=== PATIENT | male | born 1965 | race Caucasian/White ===

== ENCOUNTER 2017-04-14 10:15 | Inpatient (IN) | payer SELFPAY ==
[2017-04-14 10:28] LABS: #Basophils 0.1 thou/uL (0.0-0.2); #Eosinphils 0.2 thou/uL (0.0-0.7); #Lymphocytes 2.2 thou/uL (1.20-3.40); #Monocytes 0.7 thou/uL (0.11-0.59); #Neutrophils 5.9 thou/uL (1.40-6.50); %Basophils 0.7 % (0.0-1.0); %Eosinophils 2.7 % (0.0-10.0); %Lymphocytes 24.7 % (21.0-51.0); %Monocytes 7.3 % (0.0-10.0); Hematocrit 47.5 % (42.0-52.0); Mean Platelet Volume 8.4 fL (7.4-10.4); Red Blood Cell (RBC) Count 5.35 mill/uL (4.70-6.10); White Blood Cell (WBC) Count 9.1 thou/uL (4.8-10.8)
[2017-04-14] MEDS ORDERED: niCARdipine 20MG In NaCl 20 MG/200 ML BAG ONE (10:33)
[2017-04-14] MEDS ORDERED: Propofol 1,000 MG/100 ML VIAL IV ONE (10:33)
[2017-04-14 10:35] LABS: PTT 30.7 SEC (22.9-36.1)
[2017-04-14 10:39] LABS: Prothrombin Time 12.6 SEC (12.0-14.7)
[2017-04-14 10:43] LABS: ALT (SGPT) 17 U/L (8-55); AST (SGOT) 14 U/L (5-34); Alkaline Phosphatase 142 U/L (40-150); Anion Gap 16 mmol/L (10-20); BUN (Urea Nitrogen) 7 mg/dL (8.9-20.6); Bilirubin, Total 0.7 mg/dL (0.2-1.2); Calc. Creatinine Clearance 0 mL/min (70-130); Carbon Dioxide 21 mmol/L (22-29); Chloride 105 mmol/L (98-107); Estimated GFR-MDRD Greater than 90; Globulin 3.3 g/dL (2.4-3.5); Protein, Total 7.2 g/dL (6.0-8.3)
[2017-04-14 10:46] LABS: Troponin I 0.013 ng/mL (< 0.028)
--- NOTE | 2017-04-14 10:56 | CT ---
CT OF HEAD WITHOUT CONTRAST: CLINICAL HISTORY: AMS, stroke alert. COMPARISON: Reference is made to head CT of 03/12/16. FINDINGS: There is a large nidus of acute parenchymal hemorrhage centered within the left thalamus and mahesh ing to the left dasilva radiata with surrounding vasogenic edema. This results in mass effect and ef facement of the 3rd ventricle with mild rightward midline shift and dissection of blood into the taz tricular system, with associated ventriculomegaly. The degree of midline shift at level of third ve ntricle measures approximately 6 mm. Hemorrhage descends through the cerebral aqueduct into the 4th ventricle. There is linear increased density along the expected confines of the left MCA which cou ld relate to tracking subarachnoid hemorrhage or, alternatively, thrombus within the left MCA not fu rther discerned. There is a mild degree of hemorrhage traversing the foramina of Luschka, bilateral ly. IMPRESSION: 1. Acute hemorrhage, likely hypertensive in etiology, centered at left thalamus dissecting into the ventricular system with associated vasogenic edema, mass effect, and midline shift. 2. Moderate volume of interventricular hemorrhage does result in developing obstructive hydrocephal us. 3. Telephone call placed to ordering ER physician, Dr. Sajan Angelo, at 1042 hours, 04/14/17. CODE CR POS: LEATHA
--- NOTE | 2017-04-14 10:57 | RAD ---
FRONTAL VIEW CHEST: COMPARISON: 08/28/13. INDICATION: Dyspnea. FINDINGS: There is marked enlargement of the cervical spine. Partially imaged endotracheal tube is present wi th tip projecting at the upper aspect of the thoracic inlet. There is a nasogastric tube not well d iscerned to the course of the mediastinum, although is coiled at the left upper quadrant. There is bilateral alveolar and interstitial opacity. Left lateral lung base is excluded from view. IMPRESSION: Findings most consistent with decompensated congestive heart failure. Superimposed pneumonia not ex cluded. Recommend continued followup. POS: LEATHA
[2017-04-14 11:04] LABS: Oxyhemoglobin 92.6 % (94.0-97.0); Sodium 141 mmol/L (135-148)
[2017-04-14 11:05] LABS: Mechanical Tidal Volume 600 ml; Mode SIMV/PSV; PIP 26 cmH2O; Pressure Support 10 cmH2O; Vent YES
[2017-04-14] MEDS ORDERED: Ondansetron HCl/PF 4 MG/2 ML Vial IVP PRN (11:34)
[2017-04-14] MEDS ORDERED: Sedation Protocol FS ONE (11:34)
[2017-04-14] MEDS ORDERED: niCARdipine 20MG in NaCl 200 ML BAG IVPB PRN (11:34)
[2017-04-14] MEDS ORDERED: Fentanyl 100 MCG/2 ML VIAL ONE ×3 (11:35→19:03)
[2017-04-14] MEDS ORDERED: Nitroglycerin 50 MG/250 ML BOT 250 ML ONE (11:43)
[2017-04-14] MEDS ORDERED: Propofol 500 MG/50 ML VIAL IV PRN (11:44)
[2017-04-14] MEDS ORDERED: Fentanyl 20 MCG/ML 250 ML IVPB SCH ×2 (11:45→13:29)
[2017-04-14] MEDS ORDERED: Morphine Sulfate 2 MG/ML SYRINGE SLOW IVP PRN ×2 (11:47→13:29)
[2017-04-14] MEDS ORDERED: Lorazepam 2 MG/ML VIAL SLOW IVP PRN (13:29)
[2017-04-14] MEDS ORDERED: DISCONTINUE PREVIOUS NARCOTIC PAIN MEDICATIONS AND BENZODIAZEPINES FS SCH (13:29)
[2017-04-14] MEDS ORDERED: niCARdipine HCl 25 MG in Sodium Chloride 0.9% 250 ML 240 ML IVPB PRN (13:36)
[2017-04-14] MEDS: Labetalol HCl 100 MG/20 ML VIAL SLOW IVP PRN ×8 (14:04→21:31)
[2017-04-14] MEDS: Sodium Chloride 0.9% 1,000 ML IV SCH ×2 (14:05→23:59)
[2017-04-14] MEDS: Propofol 1,000 MG/100 ML VIAL IV PRN ×2 (14:06→18:41)
[2017-04-14] MEDS ORDERED: Dextrose 5% in Water 1,000 ML IV PRN (14:59)
[2017-04-14] MEDS ORDERED: Dextrose 50% Abboject 50 ML SYRINGE SLOW IVP PRN (14:59)
[2017-04-14] MEDS ORDERED: Lacri-Lube Opth Oint 3.5 GM TUBE EA EYE PRN (15:01)
[2017-04-14 15:16] LABS: Oxyhemoglobin 91.6 % (94.0-97.0); Sodium 140 mmol/L (135-148)
[2017-04-14 15:29] LABS: Mechanical Tidal Volume 510 ml; Mode SIMV; Modified Allen's Test POSITIVE; Pressure Support 11 cmH2O; Vent YES
[2017-04-14] MEDS ORDERED: Acetaminophen 650 MG/20.3 ML UDCUP PO PRN (17:02)
[2017-04-14] MEDS: Piperacillin/Tazobactam 3.375 GM in Sodium Chloride 0.9% 100 ML IVPB SCH ×2 (18:30→23:58)
--- NOTE | 2017-04-14 18:30 | CT ---
HEAD CT WITHOUT CONTRAST: Date: 04-14-17 Time: 5:19 p.m. Comparison: 04-14-17 at 10:40 a.m. History: Re-evaluate intracranial hemorrhage. Technique: Serial axial CT imaging at 5 mm intervals from vertex through skull base without contrast . FINDINGS: There is an intraaxial hemorrhage centered within the basal ganglia/thalamus on the left measuring a pproximately 4.1 x 2.8 cm, similar in size when compared to the prior exam. There is intraventricula r hemorrhage involving bilateral lateral ventricles, left greater than right. The third ventricle an d fourth ventricle, similar when compared to the prior exam. The bilateral lateral ventricles are dilated, the temporal horns measuring approximately 1.6 and 1.7 cm on the right and left respectively, increased from the prior exam at which time they measured 8 mm and 8 mm respectively. This suggests worsening obstructive hydrocephalus. The degree of surroundi ng vasogenic edema in the region of the intraaxial hemorrhage is stable. The third ventricle is leonard ated to the right of midline by approximately 7 mm at the level of the hemorrhage, not significantly changed. Loss of sulcation is seen in the frontal and parietal regions, left greater than right, sl ightly increased since the prior examination suggesting worsening mass effect as well. No acute osseous abnormality. Significant right sided paranasal sinus opacification again noted. IMPRESSION: 1. No significant interval change in the intraaxial hemorrhage on the left with associated intravent ricular extension. The dilation of the lateral ventricles and the supratentorial mass effect has wor sened since the prior exam. POS: IBIS
[2017-04-14] MEDS ORDERED: Lidocaine 1% w/Epinephrine 1:200K 30 ML VIAL ONE (18:40)
[2017-04-14] MEDS: Acetaminophen 650 MG/20.3 ML UDCUP PER TUBE PRN (18:41)
--- NOTE | 2017-04-14 19:05 | HP ---
NEUROSURGERY SERVICE HISTORY OF PRESENT ILLNESS: The patient is a 51-year-old male with a past medical history of hypertension and prior CVA, who presented to the emergency department per EMS after family repor ts headache which began at 8:30 following by episode where the patient became unconscious and shortl y after that the patient was brought to the emergency department where CT head was done which reveal ed a large left thalamic intracranial hemorrhage with intraventricular extension. The patient's blo od pressure was also noted to be 209/144 on arrival. The patient's initial exam per Dr. Angelo was notable for, the patient was unconscious, agonal breathing, decorticate posturing on the right with left-sided blown pupil in right lateral gaze. He was therefore intubated and sedation and stated f or protection of the airway and further management. A Cardene drip was also initiated for blood pre ssure control and the Neurosurgery Service was consulted for further evaluation. I saw the patient at the bedside in the ER, room #12. The family is also at the bedside. [facility] as well as the family, exam was limited secondary to the patient's sedation and intu bation. PAST MEDICAL HISTORY: Hypertension and CVA. SOCIAL HISTORY: The patient lives at home. He is noncompliant on his medication. He does not repo rtedly drink or use any drugs. ALLERGIES: The patient has no known drug allergies. FAMILY HISTORY: Noncontributory. REVIEW OF SYSTEMS: Unobtainable secondary to the patient's critical condition as well as intubated and sedated. PHYSICAL EXAMINATION: VITAL SIGNS: Heart rate 108, BP 179/110, 92% on the ventilator settings, and respiration rate of 22 . GENERAL: The patient is unresponsive. HEENT: Normocephalic and atraumatic. Pupils are unequal, left pupil is dilated, right pupil is fix ed, right lateral gaze was appreciated. Conjunctivae are normal. Sclerae are normal. ENT: The pa tient is currently intubated. He appears to have moist oral mucosa. NECK: Supple. Trachea is midline. RESPIRATORY: Symmetric chest expansion, bilateral breath sounds are present, currently being ventil ated. CARDIOVASCULAR: Tachycardic. No murmurs, rubs or gallops. ABDOMEN: Protuberant and soft. MUSCULOSKELETAL: Good muscle tone to his bilateral upper and lower extremities. He has withdrawal the pain over the left lower extremity, chronic venous stasis noticed bilateral lower extremities. NEUROLOGIC: GCS of 5. The patient is unresponsive. Remainder of neuro exam is limited at this hipolito e secondary to patient's sedation and intubation. ASSESSMENT: Acute intracranial hemorrhage with intraventricular extension. PLAN: I have discussed the patient's presentation, exam findings as well as imaging with Dr. Abdiel stover. He is also reviewed this as well. We will plan to admit the patient to the ICU for close monit oring and q.1 neuro checks, head of the bed will be elevated to 30 degrees. We will get better bloo d pressure control with Cardene drip as well as labetalol on p.r.n. basis. Patient will remain afte r sedation and intubated. I have consulted the Hospitalist for assistance with medical management a s well as Pulmonary. We will plan to repeat head CT at 5:00 p.m. for repeat evaluation of the patie nt's intracranial hemorrhage. The patient may require EVD placement. Please reach out to Neurosurg juma Service for additional questions or concerns.
[2017-04-14] MEDS ORDERED: Fentanyl 100 MCG/2 ML VIAL SLOW IVP SCH (19:15)
[2017-04-14] MEDS ORDERED: Acetaminophen 650 MG Suppository PR PRN (19:42)
[2017-04-14] MEDS: Famotidine/PF 20 mg/2ml Vial SLOW IVP SCH (20:37)
[2017-04-14] MEDS: niCARdipine HCl 50 MG in Sodium Chloride 0.9% 250 ML 230 ML IVPB PRN (20:58)
--- NOTE | 2017-04-14 20:59 | CON ---
DATE OF SERVICE: 04/14/2017 SERVICE: Pulmonary Medicine. REASON FOR CONSULTATION: ICU patient. HISTORY OF PRESENT ILLNESS: The patient is a 51-year-old white male with past medical history significant for diabetes and hypertension. He is supposed to be on blood pressure medications. He does not take any of these medications. He presented to the hospital with severely elevated blood pressures after abrupt changes in mentation. CT of the brain demonstrated a thalamic bleed. The location of the bleed was resulting in some abnormal postural changes. He currently cannot provide any additional elements of the history. Prior to this event, he was in his usual state of health. PAST MEDICAL HISTORY: 1. Hypertension. 2. Type 2 diabetes mellitus. 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 SOCIAL HISTORY: He drinks socially. He does not have any alcohol or illicit drug use. FAMILY HISTORY: Noncontributory. ALLERGIES: No known drug allergies. MEDICATIONS: Inpatient medications were reviewed. Multiple updates were made. REVIEW OF SYSTEMS: This could not be obtained as the patient is currently intubated and obtunded. PHYSICAL EXAMINATION: VITAL SIGNS: Afebrile, pulse 94, blood pressure 151/92, respirations 22, saturation 94% on of 47% FiO2. GENERAL: The patient is intubated. He is not responding appropriately to his environment. HEENT: Normocephalic, atraumatic. Sclerae are white, conjunctivae pink. Oral and nasal mucosa is moist without lesions. LUNGS: Decent air entry with no prolonged expiratory phase, wheezing, rhonchi or crackles. HEART: Normal rate. Regular. ABDOMEN: Soft, nontender, nondistended, bowel sounds positive. MUSCULOSKELETAL: No cyanosis or clubbing. No pitting in the bilateral lower extremities. NEUROLOGIC: With noxious stimuli, he demonstrates decerebrate posturing with the right upper extremity. His left pupil and right pupil are fixed. The left is slightly more dilated. He over breathes the ventilator. LABORATORY DATA: CBC is grossly unremarkable. INR 0.9. PH 7.34, pCO2 51, pO2 71 on SIMV with a rate of 16, and a tidal volume of 600 at that time. BUN 7. Basic metabolic profile is otherwise unremarkable. Liver function studies are normal. Cardiac enzymes and BNP are normal. IMAGING: CT of brain demonstrates acute hemorrhage at the left thalamus dissecting into the ventricular system with associated vasogenic edema and mass effect and midline shift. Moderate volume of intraventricular hemorrhage, does not result in obstructive hydrocephalus at this time. Of note, there is no evidence of herniation. Chest x-ray demonstrates endotracheal tube, roughly 6 cm above the angélica. There are low lung volumes. There is a wide mediastinum, and pleural parenchymal opacifications are identified that could represent volume overload. ASSESSMENT: 1. Intraparenchymal hemorrhage with intraventricular extension. 2. Acute hypoxic respiratory failure. 3. Type 2 diabetes mellitus, poorly controlled. 4. Hypertensive emergency. PLAN: We will provide the patient with frequent doses of labetalol in order to target a blood pressure less than 150 per Neurosurgery recommendations. We will continue support on the ventilator. Multiple adjustments have been made and the patient is now overbreathing the ventilator. I will repeat an ABG in roughly 1 hour to make certain that we are not having significant hypercapnia. Repeat CT scan of the head is going to be performed to see whether or not there is evolution of this lesion. If there is, ventriculostomy drain will be considered. I have updated the family at bedside with the plan and they understand that if he makes recovery, it is going to take several weeks for that to be apparent. I have also prepped them for the idea that he is most likely going to have permanent debility for the rest of his life, but that nobody can predict the severity/degree of that dysfunction currently. Critical care time: 30 minutes. BRIANA
--- NOTE | 2017-04-14 21:11 | CON ---
DATE OF CONSULTATION: 04/14/2017 ADMITTING PHYSICIAN: Chris Montalvo M.D. CHIEF COMPLAINT: Altered mental status. HISTORY OF PRESENT ILLNESS: The patient is a 51-year-old gentleman with a history of hypertension. The patient fell unconscious today while at synagogue. Family reports that the patient was complainin g of headache and feeling weak before falling unconscious. The patient was brought to the ED and wa s still unresponsive. A CAT scan does show an intracerebral hemorrhage. It appears hypertensive in etiology centered at the left thalamus, dissecting into the ventricular system with vasogenic edema . PAST MEDICAL HISTORY: Hypertension, diabetes, and CVA in 2016. PSYCHIATRIC HISTORY: Depression. HOME MEDICATIONS: Reported that the patient was noncompliant, but includes: 1. Atorvastatin 40 mg every day. 2. Metformin 1000 mg b.i.d. 3. Aspirin 81 mg every day. 4. Viagra 50 mg p.r.n. 5. Metoprolol 25 mg every day. 6. Amlodipine 10 mg every day. 7. Lisinopril 40 mg every day. 8. Glyburide 2.5 mg every day. 9. Zoloft 100 mg every day. SOCIAL HISTORY: The patient does drink socially. They denied that he took drugs or smoke. FAMILY HISTORY: Noncontributory at this time. REVIEW OF SYSTEMS: The following complete review of systems was negative, unless otherwise mentione d in the HPI or below: Constitutional: Weight loss or gain, sense of well-being, ability to conduc t usual activities, exercise tolerance. Skin/Breast: Rash, itching, changes in hair growth or loss , nail changes, breast lumps, tenderness, swelling, nipple discharge. Eyes: Vision, double vision, tearing, blind spots, pain. ENT/Mouth: Headaches (location, time of onset, duration, precipitatin g factors), vertigo, lightheadedness, injury. Vision, double vision, tearing, blind spots, pain, nos e bleeding, colds, obstruction, discharge, dental difficulties, gingival bleeding, dentures, neck st iffness, pain, tenderness, masses in thyroid or other areas. Cardiovascular: Precordial pain, subs ternal distress, palpitations, syncope, dyspnea on exertion, orthopnea, nocturnal paroxysmal dyspnea , edema, cyanosis, hypertension, heart murmurs, varicosities, phlebitis, claudication. Respiratory: Pain, shortness of breath, wheezing, stridor, cough, hemoptysis, fever or night sweats. Gastroint estinal: Poor appetite, dysphagia, indigestion, abdominal pain, heartburn, eructation, nausea, vomi ting, hematemesis, jaundice, constipation, or diarrhea, abnormal stools (gurpreet-colored, tarry, bloody , greasy, foul smelling), flatulence, hemorrhoids, recent changes in bowel habits. Genitourinary: Urgency, frequency, dysuria, nocturia, hematuria, polyuria, oliguria, unusual (or change in) color o f urine, stones, hesitancy, change in size of stream, dribbling, acute retention or incontinence, li filippo, potency. Musculoskeletal: Pain, swelling, redness or heat of muscles or joints, limitation, of motion, muscular weakness, atrophy, cramps. Neurologic/Psychiatric: Convulsions, paralyses, wale mor, incoordination, parasthesias, difficulties with memory of speech, sensory or motor disturbances , or muscular coordination (ataxia, tremor), emotional problems, anxiety, depression, previous psych iatric care, unusual perceptions, hallucinations. Allergy/Immunologic: Skin rash, anemia, bleeding tendency, polydipsia, polyuria, intolerance to heat or cold. PHYSICAL EXAMINATION: VITAL SIGNS: Blood pressure 148/88, pulse 86, satting 94% and the patient has temperature of 98.8. GENERAL: The patient is sedated and intubated. HEENT: Head: Normocephalic, atraumatic. Eyes: Pupils are equally round and reactive to light. T he right pupil does appear dilated with right lateral gaze. ENT: Nose exam normal. No bleeding fr om nares. Uvula exam normal. NECK: Trachea midline. ET tube in place. RESPIRATORY: Breath sounds clear. No wheezing, no rhonchi. CARDIOVASCULAR: Regular rate and rhythm. ABDOMEN: Obese, positive bowel sounds. EXTREMITIES: The patient is posturing, right arm decorticated, right leg is stiff and hyperactive, legs with some chronic venous stasis changes. NEUROLOGIC: Unresponsive. [place] coma scale of 5. LABORATORY DATA AND IMAGING: Head CT shows a midline shift with the intracerebral hemorrhage. Ches t x-ray shows findings consistent with decompensated heart failure. CBC shows a white count of 9.1, hemoglobin 16.4, hematocrit 47.5, platelets 241, PT 12.6, INR 0.9. Arterial blood gas shows a pH o f 7.34, pCO2 of 51.2, and pO2 of 71.6. Chemistries show sodium of 138, potassium 3.9, chloride 105, CO2 of 21, BUN 7, creatinine 0.78, glucose 269, AST 14, ALT 17, CK-MB 2.0, troponin I 0.013, BNP of 38.8, and albumin 3.9. ASSESSMENT AND PLAN: 1. Intracerebral hemorrhage. 2. Hypertensive emergency. 3. Diabetes type 2. PLAN: The patient is intubated and present in the ICU. He is being managed by the Neurosurgery Ser vice. There is a second CT scan pending and we will defer obviously to Neurosurgery for any surgica l intervention. The patient is on multiple medications to control his blood pressure, it is within control at this time. We will continue the current regimen and titrate medications accordingly.
--- NOTE | 2017-04-15 00:13 | OP ---
DATE OF PROCEDURE: 04/14/2017 PROCEDURE: Right twist drill placement of ventriculostomy. PROCEDURE IN DETAIL: A standard stab incision was placed in the right mid pupillary line and using the twist drill, the cranium was perforated. The dura was then punctured using a spinal needle and with a single pass and approximately 6 cm of the ventricular catheter with brisk CSF return was iden tified. The catheter was tunneled through a separate stab incision and secured with sutures.
[2017-04-15] MEDS: HumaLOG 300 UNITS/3 ML VIAL SC PRN ×4 (00:33→18:15)
[2017-04-15] MEDS: Propofol 1,000 MG/100 ML VIAL IV PRN ×2 (00:42→19:35)
[2017-04-15] MEDS: niCARdipine HCl 50 MG in Sodium Chloride 0.9% 250 ML 230 ML IVPB PRN ×4 (02:27→21:11)
[2017-04-15 05:01] LABS: #Lymphocytes 1.5 thou/uL (1.20-3.40); #Monocytes 1.2 thou/uL (0.11-0.59); #Neutrophils 9.6 thou/uL (1.40-6.50); %Basophils 0.2 % (0.0-1.0); %Eosinophils 0.3 % (0.0-10.0); %Lymphocytes 12.1 % (21.0-51.0); %Monocytes 9.7 % (0.0-10.0); Hematocrit 44.4 % (42.0-52.0); Mean Platelet Volume 8.9 fL (7.4-10.4); Red Blood Cell (RBC) Count 4.95 mill/uL (4.70-6.10); White Blood Cell (WBC) Count 12.3 thou/uL (4.8-10.8)
[2017-04-15 05:06] LABS: Oxyhemoglobin 91.5 % (94.0-97.0); Sodium 141 mmol/L (135-148)
[2017-04-15 05:08] LABS: Mechanical Tidal Volume 510 ml; Modified Allen's Test POSITIVE; Vent YES
[2017-04-15 05:09] LABS: Mode SIMV; Pressure Support 11 cmH2O
[2017-04-15] MEDS ORDERED: Sodium Chloride 0.9% 15 ML NEB ONE (05:13)
[2017-04-15 05:21] LABS: Anion Gap 16 mmol/L (10-20); BUN (Urea Nitrogen) 13 mg/dL (8.9-20.6); Calc. Creatinine Clearance 179 mL/min (70-130); Calcium 8.9 mg/dL (7.8-10.44); Carbon Dioxide 26 mmol/L (22-29); Chloride 102 mmol/L (98-107); Estimated GFR-MDRD 76
[2017-04-15] MEDS: Piperacillin/Tazobactam 3.375 GM in Sodium Chloride 0.9% 100 ML IVPB SCH ×3 (05:24→17:48)
[2017-04-15] MEDS: Famotidine/PF 20 mg/2ml Vial SLOW IVP SCH ×2 (09:00→19:39)
--- NOTE | 2017-04-15 10:33 | RAD ---
PORTABLE AP CHEST X-RAY: 04/15/2017 HISTORY: Intubated. Follow-up evaluation. COMPARISON: 04/14/2017 FINDINGS: Endotracheal tube and nasogastric tube remain in place and unchanged in position. There has been in terval development of pleural and parenchymal changes at the right lung base, which may represent sm all right pleural effusion and atelectasis, although developing pneumonia is a possibility. Interst itial and patchy opacities previously seen in the right mid lung zone and at the left lung base have resolved. The pulmonary vasculature is within normal limits. The cardiac silhouette remains enlar ged. IMPRESSION: 1. Interval development of pleural and parenchymal change at the right lung base, which may be rela brandi to interval development of right pleural effusion and atelectasis, although developing pneumonia at the right lung base is a possibility. Continued follow-up is recommended. 2. Resolution of interstitial and parenchymal opacities in the right mid lung zone and at the left lung base. 3. Cardiomegaly. 4. Tubes remain in stable position, although the tip of the nasogastric tube is not visualized. POS: CET
--- NOTE | 2017-04-15 10:52 | CT ---
PRELIMINARY REPORT/[facility]/EMERGENCY AFTER HOURS PROCEDURE: Addendum created by Aime Pierce MD on 04/15/2017 4:20 AM Central Time ([place] \T\ [place]) THIS REPORT CONTAINS FINDINGS THAT MAY BE CRITICAL TO PATIENT CARE. The findings were verbally commu nicated via telephone conference with BRIAN Palma at 4:19 AM CDT on 04/15/2017. The findings wer e acknowledged and understood. Initial Report created on 04/15/2017 4:09 AM Central Time ([place] \T\ [place]) EXAM: CT Head Without Intravenous Contrast EXAM DATE/TIME: Exam ordered 04/15/2017 3:44 AM CLINICAL HISTORY: 51 years old, male; Condition or disease; Other: F/u evd TECHNIQUE: Axial computed tomography images of the head/brain without intravenous contrast. COMPARISON: CT Brain WO Con 04/14/2017 5:14:17 PM FINDINGS: Brain: There is been interval RIGHT frontal shunt placement with tip overlying the RIGHT frontal hor n. Redemonstrated is a 3.3 cm LEFT thalamic hemorrhage with intraventricular extension, involving th e lateral third and fourth ventricles, unchanged. There is been interval increase in edema and midli ne shift with partial effacement of the suprasellar cistern concerning for herniation. Ventricles: See above. Bones/joints: Normal. No acute fracture. Soft tissues: Normal. Sinuses: Unremarkable as visualized. No acute sinusitis. Mastoid air cells: Unremarkable as visualized. No mastoid effusion. Sella: See above. IMPRESSION: 1. There is been interval RIGHT frontal shunt placement with tip overlying the RIGHT frontal horn. 2. LEFT thalamic hemorrhage with intraventricular extension and interval increase in edema and midli ne shift resulting in partial effacement of the suprasellar cistern concerning for herniation. Thank you for allowing us to participate in the care of your patient. Dictated and Authenticated by: Aime Pierce MD 04/15/2017 4:09 AM Central Time ([place] \T\ [place]) FINAL REPORT CT BRAIN: Final report. Preliminary exam was performed by [facility]. A 51-year-old with intracranial hemorrhage. I concur with the dictation from [facility]. There has been placement of a right frontal taz triculostomy tube. There has been significant reduction of the hydrocephalus. There is extensive l [id number] shift appearing to have increased since the previous exam. The volume of the intracran ial, including intraparenchymal and intraventricular hemorrhages. Incidentally noted posterior fossa lipoma is noted. POS: MED
[2017-04-15] MEDS: Sodium Chloride 0.9% 1,000 ML IV SCH (11:40)
--- NOTE | 2017-04-15 16:12 | PDOC.PN ---
- Subjective Encounter Start Date: 04/15/17 Encounter Start Time: 09:20 Pt seen for followup re: hypertension. Intubated, unable to provide history or ROS. - Objective MAR Reviewed: Yes Vital Signs & Weight: Vital Signs (12 hours) Temp Pulse Resp BP Pulse Ox 04/15/17 14:20 106 H 156/87 H 04/15/17 14:00 24 H 04/15/17 12:00 29 H 04/15/17 11:00 99.0 F 04/15/17 10:24 88 129/78 04/15/17 10:00 15 04/15/17 08:00 99.7 F H 86 15 93 L 04/15/17 07:00 99.7 F H 04/15/17 06:41 90 130/77 04/15/17 06:00 99.1 F 17 Weight Admit Weight 311 lb Weight 311 lb 8.211 oz Most Recent Monitor Data Heart Rate from ECG 92 NIBP 156/87 NIBP BP-Mean 116 Respiration from ECG 17 SpO2 97 I&O: 04/14/17 04/15/17 04/16/17 06:59 06:59 06:59 Intake Total 1963.4 Output Total 3991 520 Balance -2027.6 -520 Result Diagrams: 04/15/17 04:18 04/15/17 04:18 Additional Labs: Accuchecks 04/15/17 04/15/17 04/14/17 05:05 00:22 20:54 POC Glucose 283 H 334 H 268 H EKG Reviewed by me: Yes (Tele: NSR) Phys Exam - Physical Examination Obese Pupils not reacting to light; ETT+; has ventriculostomy tube Respiratory: no wheezing, no rales, no rhonchi, clear to auscultation bilateral Cardiovascular: RRR, no rub Gastrointestinal: soft, positive bowel sounds No spontaneous extremity movement Deviation from normal: Unable to assess Dx/Plan (1) HTN (hypertension) Code(s): I10 - ESSENTIAL (PRIMARY) HYPERTENSION Status: Chronic (2) Dyslipidemia Code(s): E78.5 - HYPERLIPIDEMIA, UNSPECIFIED Status: Chronic (3) DM type 2 (diabetes mellitus, type 2) Status: Chronic Qualifiers: Diabetes mellitus complication status: without complication - Plan DVT proph w/SCDs * . Continue cardene drip. Monitor vital signs and titrate cardene as needed. Intracranial bleed: management per neurosurgery service (primary service). Continue insulin sliding scale. Review of Systems - Medications/Allergies Allergies/Adverse Reactions: Allergies Allergy/AdvReac Type Severity Reaction Status Date / Time No Known Drug Allergies Allergy Verified 04/14/17 14:24 Medications: Current Medications Acetaminophen (Tylenol Elixir) 1,000 mg PER TUBE Q6H PRN PRN Reason: Headache/Fever or Pain Last Admin: 04/14/17 18:41 Dose: 1,000 mg Acetaminophen (Tylenol) 1,000 mg [place] Q6H PRN PRN Reason: .FEVER Last Admin: 04/15/17 01:57 Dose: 1,000 mg Cefazolin Sodium (Ancef) 2 gm SLOW IVP 0500,1300,2100 KAYLA Last Admin: 04/15/17 13:00 Dose: 2 gm Dextrose/Water (Dextrose 50%) 25 gm SLOW IVP PRN PRN PRN Reason: Hypoglycemia Famotidine (Pepcid) 20 mg SLOW IVP Q12HR KAYLA Last Admin: 04/15/17 09:00 Dose: 20 mg Glucagon (Glucagon) 1 mg IM PRN PRN PRN Reason: Hypoglycemia Sodium Chloride (Normal Saline 0.9%) 1,000 mls @ 80 mls/hr IV .[id number] KAYLA Last Admin: 04/15/17 11:40 Dose: 1,000 mls Fentanyl (Fentanyl Cadd) 250 mls @ 0 mls/hr IVPB INF KAYLA; Titrate PRN Reason: Protocol Stop: 05/14/17 13:29 Fentanyl Citrate (Fentanyl Bolus) 250 mls @ 0 mls/hr IVPB PRN PRN; As Directed PRN Reason: VENTILATION SEDATION PROTOCOL Stop: 05/14/17 13:29 Dextrose/Water (D5w) 1,000 mls @ 0 mls/hr IV .Q0M PRN; As Directed PRN Reason: Hypoglycemia Nicardipine HCl 50 mg/ Sodium (Chloride) 250 mls @ 0 mls/hr IVPB INF PRN; Protocol; Titrate PRN Reason: SBP > 150 OR DBP > 90 Last Admin: 04/15/17 11:41 Dose: 250 mls Piperacillin Sod/Tazobactam (Sod 3.375 gm/ Sodium Chloride) 100 mls @ 200 mls/ hr IVPB Q6HR KAYLA Last Admin: 04/15/17 09:00 Dose: 100 mls Insulin Human Lispro (Humalog) 0 units SC .MODERATE SLIDING SC PRN PRN Reason: Moderate Correctional Scale Last Admin: 04/15/17 14:20 Dose: 4 unit Labetalol HCl (Normodyne) 20 mg SLOW IVP Q15MIN PRN PRN Reason: SBP > 150 or DBP > 90 Last Admin: 04/14/17 21:31 Dose: 20 mg Mineral Oil/White Petrolatum (Lacri-Lube Ointment) 0 gm EA EYE PRN PRN PRN Reason: Dry Eyes Ondansetron HCl (Zofran) 4 mg IVP BIDPRN PRN PRN Reason: Nausea/Vomiting Propofol (Diprivan) 1,000 mg IV INF PRN; Protocol PRN Reason: TO ACHIEVE CAPONE SCORE 2-3 Stop: 05/14/17 13:29 Last Admin: 04/15/17 00:42 Dose: 1,000 mg Sodium Chloride (Flush - Normal Saline) 10 ml IVF PRN PRN PRN Reason: Saline Flush
[2017-04-15] MEDS: Labetalol HCl 100 MG/20 ML VIAL SLOW IVP PRN ×2 (19:32→22:50)
[2017-04-15] MEDS: Acetaminophen 650 MG/20.3 ML UDCUP PER TUBE PRN (19:50)
--- NOTE | 2017-04-15 22:36 | PRG ---
DATE OF SERVICE: 04/15/2017 SERVICE: Pulmonary Medicine. INTERVAL HISTORY: The patient is doing well from a cardiovascular and respiratory standpoint. He cannot provide any additional elements of the history. Other than fever, there were no events overnight. PHYSICAL EXAMINATION: VITAL SIGNS: Afebrile, currently with a T-max of 101.5 over the last 24 hours. HEENT: Normocephalic, atraumatic. Sclerae are white, conjunctivae pink. Oral and nasal mucosa is moist without lesions. LUNGS: Decent air entry. Rhonchi are present with no prolonged expiratory phase or wheezing. HEART: Normal rate, regular. ABDOMEN: Soft, nontender, nondistended. Bowel sounds positive. MUSCULOSKELETAL: No cyanosis or clubbing. No pitting in the bilateral lower extremities. LABORATORY DATA: WBC 12.3, hemoglobin 14.9, platelets 284,000. INR 0.9. PH 7.46, pCO2 of 44, pO2 of 55.8. Potassium 3.2. Otherwise, basic metabolic profile is unremarkable. TSH is 0.3. IMAGING: CT of the brain demonstrates a right frontal shunt in place with tip overlying the right frontal horn. Left thalamic hemorrhage with intraventricular extension and an interval decrease and edema and midline shift. Chest x-ray demonstrates interval development of pleural parenchymal changes in the right lung base, which is likely related to atelectasis and/or pleural effusion though pneumonia cannot be excluded. Resolution of interstitial and parenchymal opacities in the right mid lung zone and left lung base. Cardiomegaly. ASSESSMENT: 1. Intraparenchymal hemorrhage with intraventricular extension. 2. Acute hypoxic respiratory failure. 3. Community-acquired pneumonia secondary to aspiration. 4. Hypertensive emergency. 5. Type 2 diabetes mellitus, poorly controlled. PLAN: We will continue to provide supportive care including antibiotics, and ventilator support. The PEEP has previously been increased as well as the FIO2. We will continue to titrate this down as tolerated through time. Neurosurgery will continue family discussions Pulmonary Critical Care will continue to follow along. ABGs will be interrupted and will back off in the patient's rate slightly. Critical care time: 30 minutes. MTDD
[2017-04-16] MEDS: Propofol 1,000 MG/100 ML VIAL IV PRN ×6 (00:17→23:16)
[2017-04-16] MEDS: niCARdipine HCl 50 MG in Sodium Chloride 0.9% 250 ML 230 ML IVPB PRN ×6 (00:18→20:57)
[2017-04-16] MEDS: HumaLOG 300 UNITS/3 ML VIAL SC PRN ×5 (00:26→23:19)
[2017-04-16] MEDS: Piperacillin/Tazobactam 3.375 GM in Sodium Chloride 0.9% 100 ML IVPB SCH ×5 (00:30→23:16)
[2017-04-16] MEDS: Labetalol HCl 100 MG/20 ML VIAL SLOW IVP PRN ×7 (00:31→20:06)
[2017-04-16] MEDS: Sodium Chloride 0.9% 1,000 ML IV SCH ×2 (02:59→11:20)
[2017-04-16] MEDS: Famotidine/PF 20 mg/2ml Vial SLOW IVP SCH ×2 (08:45→20:06)
[2017-04-16] MEDS ORDERED: Insulin Detemir 100 UNITS/ML 15 UNITS in Pre-Filled Syringe 1 EACH SC SCH (09:45)
--- NOTE | 2017-04-16 09:54 | PRG ---
DATE OF SERVICE: 04/16/2017 SERVICE: Pulmonary Medicine. INTERVAL HISTORY: The patient is doing great from a cardiovascular and respiratory standpoint. That being said, his brain has not really come around too well. He cannot provide any additional elements of the history. There were no significant overnight events other than some low grade fevers. PHYSICAL EXAMINATION: VITAL SIGNS: Currently afebrile with T-max overnight of 101.7. Pulse 72, blood pressure 144/66, respirations 19, saturation 93% on 43% FIO2 and a PEEP of 7. GENERAL: Patient is intubated. He is on no sedation, but is obtunded. HEENT: Normocephalic, atraumatic. Sclerae are white, conjunctivae pink. Oral and nasal mucosa is moist without lesions. LUNGS: Decent air entry. There is no prolonged expiratory phase. Dependent crackles are present. HEART: Normal rate, regular. ABDOMEN: Soft, nontender, nondistended, bowel sounds positive. MUSCULOSKELETAL: No cyanosis or clubbing. There is no pitting in the bilateral lower extremities. GENITOURINARY: Saucedo catheter in place. NEUROLOGIC: His pupils are nonresponsive, but no longer blown on the left. He demonstrates posturing with the right upper extremity to noxious stimuli. He has a crossed extensor reflex. LABORATORY DATA: Blood sugars ranged from 268-334. ASSESSMENT: 1. Intraparenchymal hemorrhage with intraventricular extension. 2. Acute hypoxic respiratory failure. 3. Community acquired pneumonia secondary to aspiration. 4. Hypertensive emergency. 5. Type 2 diabetes mellitus. PLAN: I will increase his insulin. A couple of small ventilator adjustments have been made. We will continue decreasing FIO2 as tolerated. Supportive care will be continued for the next 24-48 hours. It is my understanding, a repeat CT scan of the head will be performed tomorrow followed by family discussion about how to proceed moving forward. The patient is unlikely to make a full neurologic recovery, but certainly is reasonable to support for a couple of days so that we can see how he progresses. Critical care time: 30 minutes. [facility]
--- NOTE | 2017-04-16 12:25 | PDOC.PN ---
- Subjective Encounter Start Date: 04/16/17 Encounter Start Time: 09:00 Pt seen for followup re: hypertension. Intubated, mechanically ventilated, unable to provide history or ROS. - Objective Resuscitation Status: Resuscitation Status CHEM:Chem Code Only MAR Reviewed: Yes Vital Signs & Weight: Vital Signs (12 hours) Temp Pulse Resp BP Pulse Ox 04/16/17 12:11 66 130/62 04/16/17 12:00 17 04/16/17 10:33 66 130/62 04/16/17 10:00 14 04/16/17 09:53 72 169/51 H 04/16/17 08:49 81 164/74 H 04/16/17 08:00 19 04/16/17 07:45 99.1 F 81 18 95 04/16/17 06:37 81 156/77 H 04/16/17 06:00 16 04/16/17 05:04 80 163/75 H 04/16/17 05:00 99.5 F 04/16/17 04:00 22 H 04/16/17 03:00 100.2 F H 86 152/81 H 04/16/17 02:00 20 04/16/17 00:31 90 160/88 H Weight Admit Weight 311 lb Weight 311 lb 3.2 oz Most Recent Monitor Data Heart Rate from ECG 72 NIBP 135/65 NIBP BP-Mean 84 Respiration from ECG 14 SpO2 92 I&O: 04/15/17 04/16/17 04/17/17 06:59 06:59 06:59 Intake Total 1963.4 3798 0 Output Total 3991 1789 473 Balance -2026.6 2008 Result Diagrams: 04/15/17 04:18 04/15/17 04:18 Additional Labs: Accuchecks 04/16/17 12:09 POC Glucose 353 H EKG Reviewed by me: Yes (tele: NSR) Phys Exam - Physical Examination Intubated, morbidly obese Pupils 3 mm deidra, sluggishly reactive to light; roving eyes; ETT+ Respiratory: no wheezing, no rales, no rhonchi, clear to auscultation bilateral Cardiovascular: RRR, no rub Gastrointestinal: soft, positive bowel sounds Musculoskeletal: pulses present No spontaneous limb movements Deviation from normal: Unable to assess mood, affect or orientation to person, place or time Skin: no rash, normal turgor, cap refill <2 seconds Dx/Plan (1) HTN (hypertension) Code(s): I10 - ESSENTIAL (PRIMARY) HYPERTENSION Status: Chronic (2) Dyslipidemia Code(s): E78.5 - HYPERLIPIDEMIA, UNSPECIFIED Status: Chronic (3) DM type 2 (diabetes mellitus, type 2) Status: Chronic Qualifiers: Diabetes mellitus complication status: without complication - Plan plan discussed w/ family, DVT proph w/SCDs * . Continue cardene drip, monitor vital signs and titrate as needed. Continue insulin. s/p ventriculostomy Review of Systems - Medications/Allergies Allergies/Adverse Reactions: Allergies Allergy/AdvReac Type Severity Reaction Status Date / Time No Known Drug Allergies Allergy Verified 04/14/17 14:24 Medications: Current Medications Acetaminophen (Tylenol Elixir) 1,000 mg PER TUBE Q6H PRN PRN Reason: Headache/Fever or Pain Last Admin: 04/15/17 19:50 Dose: 1,000 mg Acetaminophen (Tylenol) 1,000 mg [place] Q6H PRN PRN Reason: .FEVER Last Admin: 04/15/17 01:57 Dose: 1,000 mg Cefazolin Sodium (Ancef) 2 gm SLOW IVP 0500,1300,2100 KAYLA Last Admin: 04/16/17 12:11 Dose: 2 gm Dextrose/Water (Dextrose 50%) 25 gm SLOW IVP PRN PRN PRN Reason: Hypoglycemia Famotidine (Pepcid) 20 mg SLOW IVP Q12HR KAYLA Last Admin: 04/16/17 08:45 Dose: 20 mg Glucagon (Glucagon) 1 mg IM PRN PRN PRN Reason: Hypoglycemia Sodium Chloride (Normal Saline 0.9%) 1,000 mls @ 80 mls/hr IV .[id number] KAYLA Last Admin: 04/16/17 11:20 Dose: 1,000 mls Fentanyl (Fentanyl Cadd) 250 mls @ 0 mls/hr IVPB INF KAYLA; Titrate PRN Reason: Protocol Stop: 05/14/17 13:29 Fentanyl Citrate (Fentanyl Bolus) 250 mls @ 0 mls/hr IVPB PRN PRN; As Directed PRN Reason: VENTILATION SEDATION PROTOCOL Stop: 05/14/17 13:29 Dextrose/Water (D5w) 1,000 mls @ 0 mls/hr IV .Q0M PRN; As Directed PRN Reason: Hypoglycemia Nicardipine HCl 50 mg/ Sodium (Chloride) 250 mls @ 0 mls/hr IVPB INF PRN; Protocol; Titrate PRN Reason: SBP > 150 OR DBP > 90 Last Admin: 04/16/17 10:04 Dose: 250 mls Piperacillin Sod/Tazobactam (Sod 3.375 gm/ Sodium Chloride) 100 mls @ 200 mls/ hr IVPB Q6HR KAYLA Last Admin: 04/16/17 11:21 Dose: 100 mls Insulin Detemir 15 units/ (Miscellaneous Medication) 0.15 mls @ 0 mls/hr SC QAM KAYLA Insulin Human Lispro (Humalog) 0 units SC .MODERATE SLIDING SC PRN PRN Reason: Moderate Correctional Scale Last Admin: 04/16/17 12:11 Dose: 10 unit Labetalol HCl (Normodyne) 20 mg SLOW IVP Q15MIN PRN PRN Reason: SBP > 150 or DBP > 90 Last Admin: 04/16/17 12:11 Dose: 20 mg Mineral Oil/White Petrolatum (Lacri-Lube Ointment) 0 gm EA EYE PRN PRN PRN Reason: Dry Eyes Ondansetron HCl (Zofran) 4 mg IVP BIDPRN PRN PRN Reason: Nausea/Vomiting Propofol (Diprivan) 1,000 mg IV INF PRN; Protocol PRN Reason: TO ACHIEVE CAPONE SCORE 2-3 Stop: 05/14/17 13:29 Last Admin: 04/16/17 11:24 Dose: 1,000 mg Sodium Chloride (Flush - Normal Saline) 10 ml IVF PRN PRN PRN Reason: Saline Flush
[2017-04-17] MEDS: niCARdipine HCl 50 MG in Sodium Chloride 0.9% 250 ML 230 ML IVPB PRN ×8 (01:00→23:25)
[2017-04-17] MEDS: Propofol 1,000 MG/100 ML VIAL IV PRN ×7 (02:35→23:24)
[2017-04-17] MEDS: Sodium Chloride 0.9% 1,000 ML IV SCH ×2 (02:36→17:31)
[2017-04-17 04:16] LABS: #Eosinphils 0.1 thou/uL (0.0-0.7); #Lymphocytes 1.3 thou/uL (1.20-3.40); #Neutrophils 8.7 thou/uL (1.40-6.50); %Basophils 0.1 % (0.0-1.0); %Eosinophils 1.2 % (0.0-10.0); %Monocytes 8.7 % (0.0-10.0); Hematocrit 39.9 % (42.0-52.0); Mean Platelet Volume 9.3 fL (7.4-10.4); Red Blood Cell (RBC) Count 4.28 mill/uL (4.70-6.10); White Blood Cell (WBC) Count 11.2 thou/uL (4.8-10.8)
[2017-04-17 04:33] LABS: Anion Gap 15 mmol/L (10-20); BUN (Urea Nitrogen) 21 mg/dL (8.9-20.6); Calc. Creatinine Clearance 223 mL/min (70-130); Calcium 8.5 mg/dL (7.8-10.44); Carbon Dioxide 26 mmol/L (22-29); Chloride 107 mmol/L (98-107); Estimated GFR-MDRD Greater than 90; Magnesium 1.9 mg/dL (1.6-2.6); Phosphorus 3.1 mg/dL (2.3-4.7)
[2017-04-17] MEDS: Piperacillin/Tazobactam 3.375 GM in Sodium Chloride 0.9% 100 ML IVPB SCH ×4 (04:45→23:24)
[2017-04-17] MEDS: HumaLOG 300 UNITS/3 ML VIAL SC PRN ×3 (04:46→22:04)
[2017-04-17] MEDS: Labetalol HCl 100 MG/20 ML VIAL SLOW IVP PRN ×2 (06:09→19:35)
[2017-04-17] MEDS: Acetaminophen 650 MG/20.3 ML UDCUP PER TUBE PRN ×2 (06:25→22:04)
--- NOTE | 2017-04-17 08:36 | CT ---
PRELIMINARY REPORT/[facility]/EMERGENCY AFTER HOURS PROCEDURE: EXAM: CT Head Without Intravenous Contrast CLINICAL HISTORY: 51 years old, male; Condition or disease; Other: F/u ich; Additional info: Previous br read by kinza on 04/15/2017 TECHNIQUE: Axial computed tomography images of the head/brain without intravenous contrast. COMPARISON: No relevant prior studies available. FINDINGS: Left sided thalamic/internal capsular hemorrhage extending into the ventricular system is noted. The hematoma measures up to 3.4 cm. Midline shift to the right of approximately 4 mm. Hydrocephalus is noted. There is relative decompression of the right lateral ventricle secondary to a ventriculostomy tube terminating in the frontal horn Vague hypodensity in the right dasilva radiata/internal capsule on image 25 may represent evolving is chemia . The basal cisterns are grossly patent. There is no tonsillar herniation. Minimal mucosal thickening observed. Opacified right frontal sinus observed. The mastoid cavities are grossly clear IMPRESSION: Left thalamic/internal capsular hemorrhage with intraventricular extension. Approximately 4 mm shift to the right Hypodensity in the right internal capsule/dasilva radiata may represent evolving ischemia Comparison with prior images would be helpful Thank you for allowing us to participate in the care of your patient. Dictated and Authenticated by: Luis Thakkar MD 04/17/2017 5:32 AM Central Time ([place] \T\ [place]) FINAL REPORT CT HEAD: 04/17/2017 3:40 a.m. HISTORY: Follow-up intracranial hemorrhage. COMPARISON: 04/15/2017 FINDINGS: The right frontal ventriculostomy tube is unchanged. There is complete effacement of the right late ral ventricle. The left lateral ventricle remains mildly enlarged with acute hemorrhage within the left lateral ventricle. There continues to be hematoma in the left basal ganglia, extending to the region of the thalamus, with a midline shift. The size of the hematoma and the midline shift does n ot appear significantly changed from 04/15/2017. I am in agreement with the preliminary report. POS: LEATHA
[2017-04-17] MEDS: Insulin Detemir 100 UNITS/ML 15 UNITS in Pre-Filled Syringe 1 EACH SC SCH (10:24)
[2017-04-17] MEDS: Famotidine/PF 20 mg/2ml Vial SLOW IVP SCH ×2 (10:24→20:02)
--- NOTE | 2017-04-17 10:29 | PRG ---
DATE OF SERVICE: 04/17/2017 SERVICE: Pulmonary Medicine INTERVAL HISTORY: The patient is not doing well from a neurologic standpoint. He is essentially st able compared to yesterday. He had a repeat CT scan this morning. Otherwise, there has been no int erval issues. There were no events overnight except for episodic fevers. PHYSICAL EXAMINATION: VITAL SIGNS: Afebrile currently with a T-max of 100.0, pulse 88, blood pressure 170/88, respiration s 18, saturation 97% on 40% FiO2% and PEEP of 5. HEENT: Normocephalic, atraumatic. Sclerae are white, conjunctivae pink. Oral and nasal mucosa is moist without lesions. LUNGS: Decreased air entry. No prolonged expiratory phase or wheezing. HEART: Normal rate, regular. ABDOMEN: Soft, nontender, nondistended. Bowel sounds positive. MUSCULOSKELETAL: No cyanosis or clubbing. No pitting in the bilateral lower extremities. LABORATORY: WBC 11.2, hemoglobin 13.5, platelets 210,000. Potassium 3.2. Otherwise, basic metabol ic profile is otherwise unremarkable. Magnesium and phosphorus fall within normal limits. IMAGING: CT of the brain demonstrates 4 mm shift of the brain. There is a hypodensity in the right internal capsule, likely representing evolving ischemia. This is not significantly changed. ASSESSMENT: 1. Intraparenchymal hemorrhage with intraventricular extension. 2. Acute hypoxic respiratory failure, improving. 3. Community-acquired pneumonia secondary to aspiration. 4. Hypertensive emergency. 5. Type 2 diabetes mellitus. 6. Hypokalemia. PLAN: Potassium will be provided. Insulin will be increased slightly. Otherwise, supportive care will be continued until Neurosurgery has an opportunity to discuss prognosis and plan of action jaky minaya forward. If the patient's family wants us to continue supporting him, feeds will be initiated in the morning. Critical care time: 30 minutes.
--- NOTE | 2017-04-17 15:04 | PDOC.PN ---
- Subjective Encounter Start Date: 04/17/17 Encounter Start Time: 08:00 -: non-verbal Pt seen for followup re: hypertension. Intubated, mechanically ventilated, unable to provide history or ROS. - Objective Resuscitation Status: Resuscitation Status CHEM:Chem Code Only MAR Reviewed: Yes Vital Signs & Weight: Vital Signs (12 hours) Pulse Resp BP BP Pulse Ox 04/17/17 13:08 84 04/17/17 12:00 21 H 04/17/17 10:17 84 04/17/17 10:00 19 04/17/17 08:00 19 04/17/17 06:42 88 04/17/17 06:09 82 170/88 H 04/17/17 06:00 23 H 04/17/17 04:00 18 04/17/17 03:15 82 17 133/71 97 Weight Admit Weight 311 lb Weight 311 lb 15.265 oz Most Recent Monitor Data Heart Rate from ECG 86 NIBP 130/71 NIBP BP-Mean 83 Respiration from ECG 21 SpO2 94 I&O: 04/16/17 04/17/17 04/18/17 06:59 06:59 06:59 Intake Total 3798 4397 Output Total 4473 4409 534 Balance 2008 8711 -138 Result Diagrams: 04/17/17 03:35 04/17/17 03:35 Additional Labs: Accuchecks 04/16/17 04/16/17 23:19 16:01 POC Glucose 154 H 176 H EKG Reviewed by me: Yes (Tele: NSR) Phys Exam - Physical Examination Obese HEENT: sclera anicteric Pupils 3 mm deidra, sluggishly reactive to light; ETT+; ventriculostomy tube+ Respiratory: no wheezing, no rales, no rhonchi, clear to auscultation bilateral Cardiovascular: RRR, no rub Gastrointestinal: soft, positive bowel sounds Musculoskeletal: pulses present No spontaneous limb movements Deviation from normal: Unable to assess Skin: no rash Dx/Plan (1) HTN (hypertension) Code(s): I10 - ESSENTIAL (PRIMARY) HYPERTENSION Status: Chronic (2) Dyslipidemia Code(s): E78.5 - HYPERLIPIDEMIA, UNSPECIFIED Status: Chronic (3) DM type 2 (diabetes mellitus, type 2) Status: Chronic Qualifiers: Diabetes mellitus complication status: without complication - Plan plan discussed w/ family, DVT proph w/SCDs * .Continue insulin. * Monitor vital signs and titrate Cardene drip. No significant neurological chqange. Review of Systems - Medications/Allergies Allergies/Adverse Reactions: Allergies Allergy/AdvReac Type Severity Reaction Status Date / Time No Known Drug Allergies Allergy Verified 04/14/17 14:24 Medications: Current Medications Acetaminophen (Tylenol Elixir) 1,000 mg PER TUBE Q6H PRN PRN Reason: Headache/Fever or Pain Last Admin: 04/17/17 06:25 Dose: 1,000 mg Acetaminophen (Tylenol) 1,000 mg [place] Q6H PRN PRN Reason: .FEVER Last Admin: 04/15/17 01:57 Dose: 1,000 mg Cefazolin Sodium (Ancef) 2 gm SLOW IVP 0500,1300,2100 KAYLA Last Admin: 04/17/17 12:20 Dose: 2 gm Dextrose/Water (Dextrose 50%) 25 gm SLOW IVP PRN PRN PRN Reason: Hypoglycemia Famotidine (Pepcid) 20 mg SLOW IVP Q12HR KAYLA Last Admin: 04/17/17 10:24 Dose: 20 mg Glucagon (Glucagon) 1 mg IM PRN PRN PRN Reason: Hypoglycemia Sodium Chloride (Normal Saline 0.9%) 1,000 mls @ 80 mls/hr IV .[id number] KAYLA Last Admin: 04/17/17 02:36 Dose: 1,000 mls Fentanyl (Fentanyl Cadd) 250 mls @ 0 mls/hr IVPB INF KAYLA; Titrate PRN Reason: Protocol Stop: 05/14/17 13:29 Fentanyl Citrate (Fentanyl Bolus) 250 mls @ 0 mls/hr IVPB PRN PRN; As Directed PRN Reason: VENTILATION SEDATION PROTOCOL Stop: 05/14/17 13:29 Dextrose/Water (D5w) 1,000 mls @ 0 mls/hr IV .Q0M PRN; As Directed PRN Reason: Hypoglycemia Nicardipine HCl 50 mg/ Sodium (Chloride) 250 mls @ 0 mls/hr IVPB INF PRN; Protocol; Titrate PRN Reason: SBP > 150 OR DBP > 90 Last Admin: 04/17/17 11:38 Dose: 250 mls Piperacillin Sod/Tazobactam (Sod 3.375 gm/ Sodium Chloride) 100 mls @ 200 mls/ hr IVPB Q6HR KAYLA Last Admin: 04/17/17 12:20 Dose: 100 mls Insulin Detemir 15 units/ (Miscellaneous Medication) 0.15 mls @ 0 mls/hr SC QAM [facility] Last Admin: 04/17/17 10:24 Dose: 0.15 mls Insulin Human Lispro (Humalog) 0 units SC .MODERATE SLIDING SC PRN PRN Reason: Moderate Correctional Scale Last Admin: 04/17/17 12:11 Dose: 4 unit Labetalol HCl (Normodyne) 20 mg SLOW IVP Q15MIN PRN PRN Reason: SBP > 150 or DBP > 90 Last Admin: 04/17/17 06:09 Dose: 20 mg Mineral Oil/White Petrolatum (Lacri-Lube Ointment) 0 gm EA EYE PRN PRN PRN Reason: Dry Eyes Ondansetron HCl (Zofran) 4 mg IVP BIDPRN PRN PRN Reason: Nausea/Vomiting Propofol (Diprivan) 1,000 mg IV INF PRN; Protocol PRN Reason: TO ACHIEVE CAPONE SCORE 2-3 Stop: 05/14/17 13:29 Last Admin: 04/17/17 12:35 Dose: 1,000 mg Sodium Chloride (Flush - Normal Saline) 10 ml IVF PRN PRN PRN Reason: Saline Flush
[2017-04-18] MEDS: Propofol 1,000 MG/100 ML VIAL IV PRN ×5 (03:00→21:19)
[2017-04-18] MEDS: Piperacillin/Tazobactam 3.375 GM in Sodium Chloride 0.9% 100 ML IVPB SCH ×3 (05:24→19:13)
[2017-04-18] MEDS: niCARdipine HCl 50 MG in Sodium Chloride 0.9% 250 ML 230 ML IVPB PRN ×5 (05:24→21:21)
[2017-04-18] MEDS: Sodium Chloride 0.9% 1,000 ML IV SCH ×2 (05:24→19:16)
[2017-04-18] MEDS: HumaLOG 300 UNITS/3 ML VIAL SC PRN ×3 (05:35→19:59)
[2017-04-18 05:43] LABS: BUN (Urea Nitrogen) 20 mg/dL (8.9-20.6); Calc. Creatinine Clearance 234 mL/min (70-130); Calcium 8.4 mg/dL (7.8-10.44); Chloride 112 mmol/L (98-107); Estimated GFR-MDRD Greater than 90
[2017-04-18 05:58] LABS: Anion Gap 13 mmol/L (10-20); Carbon Dioxide 23 mmol/L (22-29)
[2017-04-18] MEDS: Famotidine/PF 20 mg/2ml Vial SLOW IVP SCH ×2 (09:01→21:20)
[2017-04-18] MEDS: Insulin Detemir 100 UNITS/ML 15 UNITS in Pre-Filled Syringe 1 EACH SC SCH (09:01)
[2017-04-18] MEDS: Carvedilol 6.25 MG TAB PER TUBE SCH ×2 (09:50→21:20)
--- NOTE | 2017-04-18 10:59 | PRG ---
DATE OF SERVICE: 04/18/2017 SERVICE: Pulmonary Medicine. INTERVAL HISTORY: The patient is doing fine from a cardiovascular and respiratory standpoint. Neurologically, he has made very small improvements. Nothing that I would consider meaningful at this point. After family discussion yesterday, the patient's family is leaning towards giving the patient a significant amount of time to see if he can make any kind of neurologic recovery. As such, we are tucking in through a long haul. There were no overnight events other than some intermittent fevers. PHYSICAL EXAMINATION: VITAL SIGNS: T-max 101.1, pulse 93, blood pressure 159/81, respirations 25, saturation 94% on 31% FIO2 and a PEEP of 7. HEENT: Normocephalic, atraumatic. Sclerae are white, conjunctivae pink. Oral and nasal mucosa is moist without lesions. LUNGS: Decent air entry. No prolonged expiratory phase. Dependent crackles are present. HEART: Normal rate, regular. ABDOMEN: Soft, nontender, and nondistended. Bowel sounds are positive. MUSCULOSKELETAL: No cyanosis or clubbing. No pitting in the bilateral lower extremities. LABORATORY DATA: Potassium 3.4. Chloride 112. Basic metabolic profile is otherwise unremarkable. Blood sugars are improving and controlled and ranged from 130-203. ASSESSMENT: 1. Intraparenchymal hemorrhage with intraventricular extension, status post ventriculostomy drain. 2. Acute hypoxic respiratory failure, improving. 3. Community-acquired pneumonia secondary to aspiration. 4. Hypertensive emergency. 5. Type 2 diabetes mellitus. 6. Hypokalemia. PLAN: We will continue giving more potassium. We will initiate feeds today. We will add some p.o. blood pressure medicines to see if we can titrate off the Cardizem drip. His ventilator has been adjusted over to pressure control ventilation as he seems to tolerate this a little bit better. I have tightened up minute volume alarm settings. We will continue to monitor blood sugars. Critical care time: 30 minutes. MTDD
--- NOTE | 2017-04-18 11:15 | ULT ---
DOPPLER VENOUS ULTRASOUND BILATERAL: HISTORY: Patient with intracranial hemorrhage, nonmobile, evaluate lower extremities for deep venous thrombos is, bilateral lower extremity edema. FINDINGS: Multiple longitudinal and transverse images of the right and left lower extremity venous systems are obtained using a multihertz linear ray transducer. Real-time, color flow, and spectral waveform Do ppler analysis is used to evaluate both lower extremity venous systems. The right and left common femoral, superficial femoral, femoral profunda, popliteal, posterior tibia l vein, post trifurcation veins, and greater saphenous vein are patent. No evidence of right or lef t lower extremity deep venous thrombosis seen. IMPRESSION: No evidence of right or left lower extremity deep venous thrombosis seen. POS: [facility]
--- NOTE | 2017-04-18 11:45 | PDOC.PN ---
- Subjective Encounter Start Date: 04/18/17 Encounter Start Time: 11:44 Subjective: remains intubated abd sedated. discussed w at bedside - Objective Resuscitation Status: Resuscitation Status CHEM:Chem Code Only MAR Reviewed: Yes Vital Signs & Weight: Vital Signs (12 hours) Temp Pulse Resp BP Pulse Ox 04/18/17 10:17 93 04/18/17 10:00 26 H 04/18/17 09:50 159/81 H 04/18/17 08:00 99.3 F 93 26 H 93 L 04/18/17 06:29 107 H 04/18/17 06:00 26 H 04/18/17 04:00 24 H 04/18/17 03:03 78 120/64 04/18/17 02:00 21 H 04/18/17 00:00 23 H Weight Admit Weight 311 lb Weight 313 lb 15.012 oz Most Recent Monitor Data Heart Rate from ECG 82 NIBP 143/75 NIBP BP-Mean 94 Respiration from ECG 27 SpO2 94 I&O: 04/17/17 04/18/17 04/19/17 06:59 06:59 06:59 Intake Total 4397 4454 Output Total 9800 1843 592 Balance 2338 2611 -592 Result Diagrams: 04/19/17 03:42 04/19/17 03:42 Additional Labs: Accuchecks 04/18/17 04/17/17 04/17/17 05:34 22:03 18:50 POC Glucose 164 H 167 H 130 H 04/17/17 04/16/17 04/15/17 11:44 00:26 18:12 POC Glucose 203 H 368 H 381 H 04/15/17 14:17 POC Glucose 218 H Phys Exam - Physical Examination Constitutional: NAD HEENT: PERRLA, moist MMs, sclera anicteric, oral pharynx no lesions Neck: no nodes, no JVD, supple, full ROM Respiratory: no wheezing, no rales, no rhonchi Cardiovascular: RRR, no significant murmur Gastrointestinal: soft, non-tender, no distention, positive bowel sounds Musculoskeletal: no edema, pulses present sluggish pupillary reaction. Skin: no rash Dx/Plan (1) ICH (intracerebral hemorrhage) Code(s): I61.9 - NONTRAUMATIC INTRACEREBRAL HEMORRHAGE, UNSPECIFIED Status: Acute Qualifiers: Intracerebral hemorrhage etiology: nontraumatic Laterality: left (2) Aspiration pneumonia Code(s): J69.0 - PNEUMONITIS DUE TO INHALATION OF FOOD AND VOMIT Status: Suspected (3) Hypokalemia Code(s): E87.6 - HYPOKALEMIA Status: Acute (4) Dyslipidemia Code(s): E78.5 - HYPERLIPIDEMIA, UNSPECIFIED Status: Chronic (5) HTN (hypertension) Code(s): I10 - ESSENTIAL (PRIMARY) HYPERTENSION Status: Chronic (6) DM type 2 (diabetes mellitus, type 2) Status: Chronic Qualifiers: Diabetes mellitus complication status: without complication - Plan plan discussed w/ family, duncan catheter, continue antibiotics, social service agency director , respiratory therapy, DVT proph w/SCDs BP controlled on cardene drip.started on PO BB.monitor. -: Ventriculostomy drain management per primary team. -: vent Management per PCCM team. -: replace and recheck lytes prn. -: poor terminal system operator prognosis.PCt involved. plans per primary team * .Family wants aggressive measures with Trach and PEG placement-will defer to NS team * cont supportive care. Tube feeds. IVF * daily labs Review of Systems - Review of Systems Other: unobtainable due to intubated and sedated state - Medications/Allergies Allergies/Adverse Reactions: Allergies Allergy/AdvReac Type Severity Reaction Status Date / Time No Known Drug Allergies Allergy Verified 04/14/17 14:24 Medications: Current Medications Acetaminophen (Tylenol Elixir) 1,000 mg PER TUBE Q6H PRN PRN Reason: Headache/Fever or Pain Last Admin: 04/17/17 22:04 Dose: 1,000 mg Acetaminophen (Tylenol) 1,000 mg AR Q6H PRN PRN Reason: .FEVER Last Admin: 04/15/17 01:57 Dose: 1,000 mg Carvedilol (Coreg) 12.5 mg PER TUBE BID [facility] Last Admin: 04/18/17 09:50 Dose: 12.5 mg Cefazolin Sodium (Ancef) 2 gm SLOW IVP 0500,1300,2100 [facility] Last Admin: 04/18/17 05:24 Dose: 2 gm Dextrose/Water (Dextrose 50%) 25 gm SLOW IVP PRN PRN PRN Reason: Hypoglycemia Famotidine (Pepcid) 20 mg SLOW IVP Q12HR [facility] Last Admin: 04/18/17 09:01 Dose: 20 mg Glucagon (Glucagon) 1 mg IM PRN PRN PRN Reason: Hypoglycemia Sodium Chloride (Normal Saline 0.9%) 1,000 mls @ 80 mls/hr IV .[id number] [facility] Last Admin: 04/18/17 05:24 Dose: 1,000 mls Fentanyl (Fentanyl Cadd) 250 mls @ 0 mls/hr IVPB INF [facility]; Titrate PRN Reason: Protocol Stop: 05/14/17 13:29 Fentanyl Citrate (Fentanyl Bolus) 250 mls @ 0 mls/hr IVPB PRN PRN; As Directed PRN Reason: VENTILATION SEDATION PROTOCOL Stop: 05/14/17 13:29 Dextrose/Water (D5w) 1,000 mls @ 0 mls/hr IV .Q0M PRN; As Directed PRN Reason: Hypoglycemia Nicardipine HCl 50 mg/ Sodium (Chloride) 250 mls @ 0 mls/hr IVPB INF PRN; Protocol; Titrate PRN Reason: SBP > 150 OR DBP > 90 Last Admin: 04/18/17 09:54 Dose: 250 mls Piperacillin Sod/Tazobactam (Sod 3.375 gm/ Sodium Chloride) 100 mls @ 200 mls/ hr IVPB Q6HR [facility] Last Admin: 04/18/17 11:30 Dose: 100 mls Insulin Detemir 15 units/ (Miscellaneous Medication) 0.15 mls @ 0 mls/hr SC QAM [facility] Last Admin: 04/18/17 09:01 Dose: 0.15 mls Insulin Human Lispro (Humalog) 0 units SC .MODERATE SLIDING SC PRN PRN Reason: Moderate Correctional Scale Last Admin: 04/18/17 05:35 Dose: 2 unit Labetalol HCl (Normodyne) 20 mg SLOW IVP Q15MIN PRN PRN Reason: SBP > 150 or DBP > 90 Last Admin: 04/17/17 19:35 Dose: 20 mg Mineral Oil/White Petrolatum (Lacri-Lube Ointment) 0 gm EA EYE PRN PRN PRN Reason: Dry Eyes Ondansetron HCl (Zofran) 4 mg IVP BIDPRN PRN PRN Reason: Nausea/Vomiting Potassium Chloride (Klor-Con) 40 meq PO Q4H [facility] Stop: 04/18/17 14:46 Last Admin: 04/18/17 11:30 Dose: 40 meq Propofol (Diprivan) 1,000 mg IV INF PRN; Protocol PRN Reason: TO ACHIEVE CAPONE SCORE 2-3 Stop: 05/14/17 13:29 Last Admin: 04/18/17 05:24 Dose: 1,000 mg Sodium Chloride (Flush - Normal Saline) 10 ml IVF PRN PRN PRN Reason: Saline Flush Last Admin: 04/17/17 20:03 Dose: 10 ml
[2017-04-18] MEDS: Labetalol HCl 100 MG/20 ML VIAL SLOW IVP PRN (14:33)
[2017-04-19] MEDS: Piperacillin/Tazobactam 3.375 GM in Sodium Chloride 0.9% 100 ML IVPB SCH ×5 (00:11→23:32)
[2017-04-19] MEDS: Propofol 1,000 MG/100 ML VIAL IV PRN ×6 (00:12→22:13)
[2017-04-19] MEDS: niCARdipine HCl 50 MG in Sodium Chloride 0.9% 250 ML 230 ML IVPB PRN ×7 (00:12→22:35)
[2017-04-19] MEDS: HumaLOG 300 UNITS/3 ML VIAL SC PRN ×4 (00:50→18:23)
[2017-04-19 04:23] LABS: #Eosinphils 0.4 thou/uL (0.0-0.7); #Lymphocytes 1.2 thou/uL (1.20-3.40); #Monocytes 0.9 thou/uL (0.11-0.59); #Neutrophils 7.1 thou/uL (1.40-6.50); %Basophils 0.3 % (0.0-1.0); %Eosinophils 3.7 % (0.0-10.0); %Lymphocytes 12.9 % (21.0-51.0); %Monocytes 9.2 % (0.0-10.0); Hematocrit 43.6 % (42.0-52.0); Mean Platelet Volume 9.1 fL (7.4-10.4); Red Blood Cell (RBC) Count 4.68 mill/uL (4.70-6.10); White Blood Cell (WBC) Count 9.6 thou/uL (4.8-10.8)
[2017-04-19 04:38] LABS: Anion Gap 14 mmol/L (10-20); BUN (Urea Nitrogen) 18 mg/dL (8.9-20.6); Calc. Creatinine Clearance 244 mL/min (70-130); Calcium 8.9 mg/dL (7.8-10.44); Carbon Dioxide 22 mmol/L (22-29); Chloride 114 mmol/L (98-107); Estimated GFR-MDRD Greater than 90
[2017-04-19] MEDS: Sodium Chloride 0.9% 1,000 ML IV SCH (05:19)
[2017-04-19 06:57] LABS: Sodium 149 mmol/L (135-148)
[2017-04-19 06:59] LABS: Vent YES
[2017-04-19 07:00] LABS: Mode SIMV/PC; PIP 7 cmH2O; Pressure Support 7 cmH2O
[2017-04-19] MEDS ORDERED: Furosemide 20 MG/2 ML VIAL SLOW IVP SCH (08:45)
[2017-04-19] MEDS: Carvedilol 6.25 MG TAB PER TUBE SCH (08:59)
[2017-04-19] MEDS: Famotidine/PF 20 mg/2ml Vial SLOW IVP SCH ×2 (08:59→20:44)
[2017-04-19] MEDS: Dextrose 5% in Water 1,000 ML IV SCH (09:40)
[2017-04-19] MEDS: Insulin Detemir 100 UNITS/ML 15 UNITS in Pre-Filled Syringe 1 EACH SC SCH (09:40)
[2017-04-19 11:07] VITALS: BMI 39.6
[2017-04-19] MEDS: Scopolamine 1.5 mg/72 hour Patch TOP SCH (12:18)
--- NOTE | 2017-04-19 12:57 | PDOC.PN ---
- Subjective Encounter Start Date: 04/19/17 Encounter Start Time: 12:55 Subjective: no changes. discussed w at bedside -: remains vent dependent - Objective Resuscitation Status: Resuscitation Status CHEM:Chem Code Only MAR Reviewed: Yes Vital Signs & Weight: Vital Signs (12 hours) Temp Pulse Resp BP Pulse Ox 04/19/17 10:22 88 04/19/17 10:00 23 H 04/19/17 08:59 157/89 H 04/19/17 08:00 25 H 04/19/17 07:26 99.5 F 84 23 H 92 L 04/19/17 06:25 95 04/19/17 06:00 26 H 04/19/17 04:00 21 H 04/19/17 02:36 94 04/19/17 02:00 24 H Weight Admit Weight 311 lb Weight 317 lb 7.45 oz Most Recent Monitor Data Heart Rate from ECG 95 NIBP 156/86 NIBP BP-Mean 104 Respiration from ECG 27 SpO2 90 I&O: 04/18/17 04/19/17 04/20/17 06:59 06:59 06:59 Intake Total 4454 5245 Output Total 1843 2165 1733 Balance 2611 3080 -1733 Result Diagrams: 04/19/17 03:42 04/19/17 03:42 Additional Labs: Accuchecks 04/19/17 04/19/17 04/18/17 06:17 00:49 18:19 POC Glucose 210 H 192 H 180 H 04/18/17 12:17 POC Glucose 178 H EKG Reviewed by me: Yes (NSR on tele) Phys Exam - Physical Examination Constitutional: NAD intubated HEENT: moist MMs, sclera anicteric, oral pharynx no lesions Neck: no nodes, no JVD Respiratory: no wheezing, no rales, no rhonchi Cardiovascular: RRR, no significant murmur Gastrointestinal: soft, non-tender, no distention, positive bowel sounds Musculoskeletal: pulses present, edema present (+1 b/l) upgoing babinski b/l Deviation from normal: sedated Skin: no rash Dx/Plan (1) ICH (intracerebral hemorrhage) Code(s): I61.9 - NONTRAUMATIC INTRACEREBRAL HEMORRHAGE, UNSPECIFIED Status: Acute Qualifiers: Intracerebral hemorrhage etiology: nontraumatic Laterality: left (2) Aspiration pneumonia Code(s): J69.0 - PNEUMONITIS DUE TO INHALATION OF FOOD AND VOMIT Status: Suspected (3) Hypokalemia Code(s): E87.6 - HYPOKALEMIA Status: Acute (4) Dyslipidemia Code(s): E78.5 - HYPERLIPIDEMIA, UNSPECIFIED Status: Chronic (5) HTN (hypertension) Code(s): I10 - ESSENTIAL (PRIMARY) HYPERTENSION Status: Chronic (6) DM type 2 (diabetes mellitus, type 2) Status: Chronic Qualifiers: Diabetes mellitus complication status: without complication - Plan plan discussed w/ family, continue antibiotics, manager social responsibility, respiratory therapy, DVT proph w/SCDs Cont vent management per PCC -: plans for Trach and PEG next week as per Primary team. -: Hemodynamically stable. BP controlled on PO Coreg & Nicardipidine drip. -: empiric ABx for possible aspiration PNA -: cont ISS w levemir. Blood sugar controlled reasonable.am labs * . Review of Systems - Review of Systems Other: unobtainable due to sedation and encephalopathy - Medications/Allergies Allergies/Adverse Reactions: Allergies Allergy/AdvReac Type Severity Reaction Status Date / Time No Known Drug Allergies Allergy Verified 04/14/17 14:24 Medications: Current Medications Acetaminophen (Tylenol Elixir) 1,000 mg PER TUBE Q6H PRN PRN Reason: Headache/Fever or Pain Last Admin: 04/17/17 22:04 Dose: 1,000 mg Acetaminophen (Tylenol) 1,000 mg AK Q6H PRN PRN Reason: .FEVER Last Admin: 04/15/17 01:57 Dose: 1,000 mg Carvedilol (Coreg) 12.5 mg PER TUBE BID [facility] Last Admin: 04/19/17 08:59 Dose: 12.5 mg Cefazolin Sodium (Ancef) 2 gm SLOW IVP 0500,1300,2100 [facility] Last Admin: 04/19/17 12:17 Dose: 2 gm Dextrose/Water (Dextrose 50%) 25 gm SLOW IVP PRN PRN PRN Reason: Hypoglycemia Famotidine (Pepcid) 20 mg SLOW IVP Q12HR [facility] Last Admin: 04/19/17 08:59 Dose: 20 mg Glucagon (Glucagon) 1 mg IM PRN PRN PRN Reason: Hypoglycemia Fentanyl (Fentanyl Cadd) 250 mls @ 0 mls/hr IVPB INF [facility]; Titrate PRN Reason: Protocol Stop: 05/14/17 13:29 Fentanyl Citrate (Fentanyl Bolus) 250 mls @ 0 mls/hr IVPB PRN PRN; As Directed PRN Reason: VENTILATION SEDATION PROTOCOL Stop: 05/14/17 13:29 Dextrose/Water (D5w) 1,000 mls @ 0 mls/hr IV .Q0M PRN; As Directed PRN Reason: Hypoglycemia Nicardipine HCl 50 mg/ Sodium (Chloride) 250 mls @ 0 mls/hr IVPB INF PRN; Protocol; Titrate PRN Reason: SBP > 150 OR DBP > 90 Last Admin: 04/19/17 11:04 Dose: 250 mls Piperacillin Sod/Tazobactam (Sod 3.375 gm/ Sodium Chloride) 100 mls @ 200 mls/ hr IVPB Q6HR [facility] Last Admin: 04/19/17 12:17 Dose: 100 mls Insulin Detemir 15 units/ (Miscellaneous Medication) 0.15 mls @ 0 mls/hr SC QAM [facility] Last Admin: 04/19/17 09:40 Dose: 0.15 mls Dextrose/Water (D5w) 1,000 mls @ 50 mls/hr IV .Q20H [facility] Last Admin: 04/19/17 09:40 Dose: 1,000 mls Vancomycin HCl 2 gm/ Sodium (Chloride) 500 mls @ 250 mls/hr IVPB 0400,1200, 2000 [facility] Last Admin: 04/19/17 12:19 Dose: 500 mls Insulin Human Lispro (Humalog) 0 units SC .MODERATE SLIDING SC PRN PRN Reason: Moderate Correctional Scale Last Admin: 04/19/17 06:18 Dose: 4 unit Labetalol HCl (Normodyne) 20 mg SLOW IVP Q15MIN PRN PRN Reason: SBP > 150 or DBP > 90 Last Admin: 04/18/17 14:33 Dose: 20 mg Mineral Oil/White Petrolatum (Lacri-Lube Ointment) 0 gm EA EYE PRN PRN PRN Reason: Dry Eyes Miscellaneous Medication (Pharmacy To Dose) 1 each IVPB PRN PRN PRN Reason: . Ondansetron HCl (Zofran) 4 mg IVP BIDPRN PRN PRN Reason: Nausea/Vomiting Propofol (Diprivan) 1,000 mg IV INF PRN; Protocol PRN Reason: TO ACHIEVE CAPONE SCORE 2-3 Stop: 05/14/17 13:29 Last Admin: 04/19/17 05:20 Dose: 1,000 mg Scopolamine (Transderm Scop) 1.5 mg TOP Q3D [facility] Last Admin: 04/19/17 12:18 Dose: 1.5 mg Sodium Chloride (Flush - Normal Saline) 10 ml IVF PRN PRN PRN Reason: Saline Flush Last Admin: 04/17/17 20:03 Dose: 10 ml
[2017-04-19] MEDS: Labetalol HCl 100 MG/20 ML VIAL SLOW IVP PRN ×3 (15:12→18:27)
--- NOTE | 2017-04-19 16:33 | PRG ---
DATE OF SERVICE: 04/19/2017 SERVICE: Pulmonary Medicine. INTERVAL HISTORY: The patient is doing great from a cardiovascular and respiratory standpoint. His oxygen requirements are improving a little bit. Currently, denies any fevers, chills, nausea, vomi ting or diarrhea. From a mentation standpoint, his coma is lightening up a little bit. That being said, he is currently not responding any very purposeful way. PHYSICAL EXAMINATION: VITAL SIGNS: Afebrile currently with a T-max of 100.6. Pulse 99, blood pressure 158/93, respiratio ns 27, saturation 94% on room air. GENERAL: Patient is awake and alert, in no apparent distress. LUNGS: Decent air entry. There is a prolonged expiratory phase and dependent crackles present. HEART: Normal rate, regular. ABDOMEN: Soft, nontender, nondistended. Bowel sounds positive. MUSCULOSKELETAL: No cyanosis or clubbing. No pitting in the bilateral lower extremities. LABORATORY DATA: WBC 9.6, hemoglobin 14.4, platelets 206,000. A pH 7.44, pCO2 35, pO2 54% on 40% F IO2. Sodium 147, potassium 3.4, chloride 114. Basic metabolic profile is otherwise unremarkable. ASSESSMENT: 1. Intraparenchymal hemorrhage with intraventricular extension, status post ventriculostomy drain. 2. Acute hypoxic respiratory failure, improving. 3. Community-acquired pneumonia secondary to aspiration. 4. Hypertensive emergency. 5. Type 2 diabetes mellitus. 6. Hypokalemia. 7. Cellulitis. PLAN: We will add vancomycin. Potassium will be continued to be replaced. I will give a dose of L asix today as the patient is significantly volume overloaded, hypertensive, and volume up for this h ospital stay. Otherwise, supportive measures will be continued through the weekend. We will likely plan on a PEG and tracheostomy on Saturday assuming everything goes well. CRITICAL CARE TIME: 30 minutes.
[2017-04-19] MEDS: Carvedilol 25 MG TAB PER TUBE SCH (20:44)
[2017-04-20] MEDS: HumaLOG 300 UNITS/3 ML VIAL SC PRN ×4 (00:55→17:52)
[2017-04-20] MEDS: Propofol 1,000 MG/100 ML VIAL IV PRN ×7 (01:55→22:30)
[2017-04-20] MEDS: niCARdipine HCl 50 MG in Sodium Chloride 0.9% 250 ML 230 ML IVPB PRN ×6 (02:15→22:30)
[2017-04-20] MEDS: Dextrose 5% in Water 1,000 ML IV SCH (03:51)
[2017-04-20] MEDS: Labetalol HCl 100 MG/20 ML VIAL SLOW IVP PRN ×2 (04:02→18:11)
[2017-04-20 04:45] LABS: #Eosinphils 0.4 thou/uL (0.0-0.7); #Lymphocytes 1.3 thou/uL (1.20-3.40); #Monocytes 0.8 thou/uL (0.11-0.59); #Neutrophils 6.9 thou/uL (1.40-6.50); %Basophils 0.4 % (0.0-1.0); %Eosinophils 4.2 % (0.0-10.0); %Lymphocytes 13.5 % (21.0-51.0); %Monocytes 8.7 % (0.0-10.0); Mean Platelet Volume 9.4 fL (7.4-10.4); Red Blood Cell (RBC) Count 4.49 mill/uL (4.70-6.10); White Blood Cell (WBC) Count 9.4 thou/uL (4.8-10.8)
[2017-04-20 05:04] LABS: Anion Gap 13 mmol/L (10-20); BUN (Urea Nitrogen) 16 mg/dL (8.9-20.6); Calc. Creatinine Clearance 273 mL/min (70-130); Calcium 8.7 mg/dL (7.8-10.44); Carbon Dioxide 25 mmol/L (22-29); Chloride 111 mmol/L (98-107); Estimated GFR-MDRD Greater than 90
[2017-04-20] MEDS: Piperacillin/Tazobactam 3.375 GM in Sodium Chloride 0.9% 100 ML IVPB SCH ×3 (05:12→17:21)
[2017-04-20 07:26] LABS: Oxyhemoglobin 91.3 % (94.0-97.0); Sodium 145 mmol/L (135-148)
[2017-04-20 07:29] LABS: Modified Allen's Test NOT DONE; Vent YES
[2017-04-20 07:30] LABS: Pressure Support 7 cmH2O
[2017-04-20 07:31] LABS: Mode PC SIMV LOW 7
[2017-04-20] MEDS: Furosemide 20 MG/2 ML VIAL SLOW IVP SCH (08:23)
[2017-04-20] MEDS: Famotidine/PF 20 mg/2ml Vial SLOW IVP SCH ×2 (08:23→20:13)
[2017-04-20] MEDS: Carvedilol 25 MG TAB PER TUBE SCH ×2 (08:24→20:13)
[2017-04-20] MEDS: INSULIN DETEMIR SC SCH (09:10)
[2017-04-20] MEDS: PRE FILLED SC SCH (09:10)
[2017-04-20] MEDS: Acetaminophen 650 MG/20.3 ML UDCUP PER TUBE PRN ×2 (09:57→15:50)
[2017-04-20] MEDS: Sodium Chloride 0.9% 1,000 ML IV SCH (11:01)
--- NOTE | 2017-04-20 11:04 | PRG ---
DATE OF SERVICE: 04/20/2017 SUBJECTIVE: Mr. Mora was starting his 6th hospital day with us. He suffered an intracerebral he morrhage including the dominant thalamus and the ventricular system. He has an EVD in place and he remains in the ICU. Tracheostomy and gastrostomy are scheduled for Saturday. When I see Mr. Mora in the ICU, stopped his sedation, he becomes more purposeful with the left si de. He opens both eyes for me today, seemed to look into his sister's eyes and follow her a bit radha und the room. He definitely withdraws the left upper extremity, he may even localize. Mr. Mora's neurological examination is stable, though slightly improved from yesterday. We will keep the EVD open over the weekend and plan for a trach and PEG on Saturday.
--- NOTE | 2017-04-20 12:24 | PRG ---
DATE OF SERVICE: 04/20/2017 SUBJECTIVE: Mr. Mora is a 51-year-old male I saw in his ICU room this morning. Overnight, there have been no acute events. His glucose this morning was 235. His vital signs have been stable and his ICP average is ranging between 4 and 18. We will continue to monitor his ICP today through his EVD. He has been draining a little bit of fluid. When stimulated, his ICP increases. There are no new neurologic deficits on exam. He does have a puncture wound. It looks like from IV placement on the left and right posterior hand. The right hand is inflamed and the left hand has some erythema and some pus coming out of the posterior pinhole from the puncture wound. We will take a culture of that today and wait for Gram stain. If it is an infectious process since he is already on antibiotics, we may consult Dr. Delgado to make recommendation on treatment. Otherwise, there has been no acute changes. If there are any further questions, please feel free to contact Neurosurgery. BRIANA
--- NOTE | 2017-04-20 12:56 | ULT ---
HISTORY: Immobility. Thalamic hemorrhage. Bilateral lower extremity discoloration and swelling. Evaluate f or right and left lower extremity deep venous thrombosis. TECHNIQUE: Multiple longitudinal and transverse images of the right and left lower extremity venous systems are obtained using the Multi-Hertz linear array transducer. Real-time, color-flow, and spectral wave-f orm Doppler analysis are used to evaluate the right and left lower extremity venous systems. FINDINGS: No evidence of acute or old clot seen in the right or left common femoral, superficial femoral, femo ral profunda, popliteal, posterior tibial, post trifurcation, and greater saphenous veins. IMPRESSION: No evidence of right or left lower extremity deep venous thrombosis. POS: [facility]
--- NOTE | 2017-04-20 13:33 | PRG ---
DATE OF SERVICE: 04/20/2017 SUBJECTIVE: Mr. Ken Mora is intubated on the vent. His sedation was withheld this morning. PHYSICAL EXAMINATION: VITAL SIGNS: Pulse is 87, blood pressure is 154/87, sats are 93, respiration 22. His I's and O's have been 5245 in and 2165 out, intubated in the vent. CHEST: Revealed decreased breath sounds, no wheezing. CARDIAC: Normal S1 and S2. No gallops. ABDOMEN: Soft, no masses. NEUROLOGIC: Not much responsive. He opens his eyes. LABORATORY DATA: White count is 9.4, H\T\H of 14 and 42, platelet count 208, PO2 60, PCO2 40, pH 7. 43. He is on FIO2 37% and rate of 13. His electrolytes are normal . IMPRESSION: Status post intracerebral hemorrhage, respiratory failure, pneumonia, diabetes, hyperte nsion. PLAN: 1. At this stage, he is not weanable. 2. Await Neurology input. 3. Broad spectrum antibiotics, supportive, vent. We will follow. One-half hour critical care time.
--- NOTE | 2017-04-20 14:23 | PDOC.PN ---
- Subjective Encounter Start Date: 04/20/17 Encounter Start Time: 09:00 Pt seen for followup re: hypertension. Intubated, unable to provide ROS. - Objective Resuscitation Status: Resuscitation Status CHEM:Chem Code Only MAR Reviewed: Yes Vital Signs & Weight: Vital Signs (12 hours) Temp Pulse Pulse Pulse Resp BP BP 04/20/17 14:00 23 H 04/20/17 12:00 28 H 04/20/17 10:54 78 76 136/77 04/20/17 10:00 19 04/20/17 08:00 99.2 F 78 19 04/20/17 07:03 78 132/76 04/20/17 06:00 24 H 04/20/17 04:02 85 204/102 H 04/20/17 04:00 27 H 04/20/17 02:44 85 BP Pulse Ox Pulse Ox Pulse Ox 04/20/17 14:00 04/20/17 12:00 04/20/17 10:54 140/71 94 L 94 L 04/20/17 10:00 04/20/17 08:00 94 L 04/20/17 07:03 04/20/17 06:00 04/20/17 04:02 04/20/17 04:00 04/20/17 02:44 Weight Admit Weight 311 lb Weight 341 lb 11.464 oz Most Recent Monitor Data Heart Rate from ECG 82 NIBP 140/73 NIBP BP-Mean 96 Respiration from ECG 29 SpO2 96 I&O: 04/19/17 04/20/17 04/21/17 06:59 06:59 06:59 Intake Total 5245 6355 640 Output Total 2165 4292 1255 Balance 3080 2063 -615 Result Diagrams: 04/20/17 03:50 04/20/17 03:50 Additional Labs: Accuchecks 04/20/17 04/20/17 04/20/17 12:40 06:08 00:49 POC Glucose 297 H 199 H 237 H 04/19/17 18:06 POC Glucose 211 H EKG Reviewed by me: Yes (Tele: NSR) Phys Exam - Physical Examination Intubated ETT; pupils equal, reactive to light; ventriculostomy+ Respiratory: no wheezing, no rales, no rhonchi, clear to auscultation bilateral Cardiovascular: RRR, no rub Gastrointestinal: soft, positive bowel sounds Musculoskeletal: pulses present Neurological: moves all 4 limbs Psychiatric: normal affect Skin: no rash Dx/Plan (1) HTN (hypertension) Code(s): I10 - ESSENTIAL (PRIMARY) HYPERTENSION Status: Chronic (2) Dyslipidemia Code(s): E78.5 - HYPERLIPIDEMIA, UNSPECIFIED Status: Chronic (3) DM type 2 (diabetes mellitus, type 2) Status: Chronic Qualifiers: Diabetes mellitus complication status: without complication - Plan continue antibiotics, DVT proph w/SCDs * . Monitor vital signs and titrate antihypertensives. Continue insulin. Plan for PEG/trach next week. Review of Systems - Medications/Allergies Allergies/Adverse Reactions: Allergies Allergy/AdvReac Type Severity Reaction Status Date / Time No Known Drug Allergies Allergy Verified 04/14/17 14:24 Medications: Current Medications Acetaminophen (Tylenol Elixir) 1,000 mg PER TUBE Q6H PRN PRN Reason: Headache/Fever or Pain Last Admin: 04/20/17 09:57 Dose: 1,000 mg Acetaminophen (Tylenol) 1,000 mg [place] Q6H PRN PRN Reason: .FEVER Last Admin: 04/15/17 01:57 Dose: 1,000 mg Carvedilol (Coreg) 25 mg PER TUBE BID [facility] Last Admin: 04/20/17 08:24 Dose: 25 mg Cefazolin Sodium (Ancef) 2 gm SLOW IVP 0500,1300,2100 [facility] Last Admin: 04/20/17 12:43 Dose: 2 gm Dextrose/Water (Dextrose 50%) 25 gm SLOW IVP PRN PRN PRN Reason: Hypoglycemia Famotidine (Pepcid) 20 mg SLOW IVP Q12HR [facility] Last Admin: 04/20/17 08:23 Dose: 20 mg Furosemide (Lasix) 20 mg SLOW IVP DAILY [facility] Last Admin: 04/20/17 08:23 Dose: 20 mg Glucagon (Glucagon) 1 mg IM PRN PRN PRN Reason: Hypoglycemia Fentanyl (Fentanyl Cadd) 250 mls @ 0 mls/hr IVPB INF [facility]; Titrate PRN Reason: Protocol Stop: 05/14/17 13:29 Fentanyl Citrate (Fentanyl Bolus) 250 mls @ 0 mls/hr IVPB PRN PRN; As Directed PRN Reason: VENTILATION SEDATION PROTOCOL Stop: 05/14/17 13:29 Dextrose/Water (D5w) 1,000 mls @ 0 mls/hr IV .Q0M PRN; As Directed PRN Reason: Hypoglycemia Nicardipine HCl 50 mg/ Sodium (Chloride) 250 mls @ 0 mls/hr IVPB INF PRN; Protocol; Titrate PRN Reason: SBP > 150 OR DBP > 90 Last Admin: 04/20/17 12:53 Dose: 250 mls Piperacillin Sod/Tazobactam (Sod 3.375 gm/ Sodium Chloride) 100 mls @ 200 mls/ hr IVPB Q6HR [facility] Last Admin: 04/20/17 12:20 Dose: 100 mls Vancomycin HCl 2 gm/ Sodium (Chloride) 500 mls @ 250 mls/hr IVPB 0400,1200, 2000 [facility] Last Admin: 04/20/17 11:04 Dose: 500 mls Insulin Detemir 18 units/ (Miscellaneous Medication) 0.18 mls @ 1 mls/hr SC QAM [facility] Last Admin: 04/20/17 09:10 Dose: 0.18 mls Sodium Chloride (Normal Saline 0.9%) 1,000 mls @ 50 mls/hr IV .Q20H [facility] Last Admin: 04/20/17 11:01 Dose: 1,000 mls Insulin Human Lispro (Humalog) 0 units SC .MODERATE SLIDING SC PRN PRN Reason: Moderate Correctional Scale Last Admin: 04/20/17 12:41 Dose: 6 unit Labetalol HCl (Normodyne) 20 mg SLOW IVP Q15MIN PRN PRN Reason: SBP > 150 or DBP > 90 Last Admin: 04/20/17 04:02 Dose: 20 mg Mineral Oil/White Petrolatum (Lacri-Lube Ointment) 0 gm EA EYE PRN PRN PRN Reason: Dry Eyes Miscellaneous Medication (Pharmacy To Dose) 1 each IVPB PRN PRN PRN Reason: . Ondansetron HCl (Zofran) 4 mg IVP BIDPRN PRN PRN Reason: Nausea/Vomiting Propofol (Diprivan) 1,000 mg IV INF PRN; Protocol PRN Reason: TO ACHIEVE CAPONE SCORE 2-3 Stop: 05/14/17 13:29 Last Admin: 04/20/17 13:02 Dose: 1,000 mg Scopolamine (Transderm Scop) 1.5 mg TOP Q3D [facility] Last Admin: 04/19/17 12:18 Dose: 1.5 mg Sodium Chloride (Flush - Normal Saline) 10 ml IVF PRN PRN PRN Reason: Saline Flush Last Admin: 04/17/17 20:03 Dose: 10 ml
--- NOTE | 2017-04-20 17:38 | EKG ---
Test Reason : STROKE Blood Pressure : / mmHG Vent. Rate : 106 BPM Atrial Rate : 106 BPM P-R Int : 156 ms QRS Dur : 134 ms QT Int : 376 ms P-R-T Axes : 045 -53 080 degrees QTc Int : 499 ms Sinus tachycardia Left axis deviation Left ventricular hypertrophy with QRS widening and repolarization abnormality Cannot rule out Septal infarct , age undetermined Biatrial enlargement Abnormal ECG Confirmed by MAX GATICA, DERICK Griffith ([id number]), design editor YUNIEL MULLEN ([id number]) on 04/20/2017 5:37:55 PM Referred By: Confirmed By:DERICK SANTANA MD
[2017-04-20 19:11] LABS: Vancomycin, Trough 18.5 ug/mL
[2017-04-21] MEDS: niCARdipine HCl 50 MG in Sodium Chloride 0.9% 250 ML 230 ML IVPB PRN ×5 (00:10→20:15)
[2017-04-21] MEDS: Piperacillin/Tazobactam 3.375 GM in Sodium Chloride 0.9% 100 ML IVPB SCH ×4 (00:29→17:04)
[2017-04-21 05:08] LABS: #Eosinphils 0.4 thou/uL (0.0-0.7); #Lymphocytes 1.3 thou/uL (1.20-3.40); #Monocytes 0.8 thou/uL (0.11-0.59); #Neutrophils 6.5 thou/uL (1.40-6.50); %Basophils 0.3 % (0.0-1.0); %Eosinophils 4.4 % (0.0-10.0); %Lymphocytes 14.6 % (21.0-51.0); %Monocytes 8.6 % (0.0-10.0); Hematocrit 40.6 % (42.0-52.0); Mean Platelet Volume 9.1 fL (7.4-10.4)
[2017-04-21 05:14] LABS: Anion Gap 14 mmol/L (10-20); BUN (Urea Nitrogen) 19 mg/dL (8.9-20.6); Calc. Creatinine Clearance 258 mL/min (70-130); Calcium 8.6 mg/dL (7.8-10.44); Carbon Dioxide 24 mmol/L (22-29); Chloride 110 mmol/L (98-107); Estimated GFR-MDRD Greater than 90
[2017-04-21] MEDS: HumaLOG 300 UNITS/3 ML VIAL SC PRN ×3 (05:27→17:43)
[2017-04-21] MEDS: Propofol 1,000 MG/100 ML VIAL IV PRN ×6 (07:57→23:30)
[2017-04-21] MEDS: Carvedilol 25 MG TAB PER TUBE SCH ×2 (08:00→20:13)
[2017-04-21] MEDS: Furosemide 20 MG/2 ML VIAL SLOW IVP SCH (08:00)
[2017-04-21] MEDS: Famotidine/PF 20 mg/2ml Vial SLOW IVP SCH ×2 (08:00→20:13)
[2017-04-21] MEDS: Acetaminophen 650 MG/20.3 ML UDCUP PER TUBE PRN ×3 (08:00→20:24)
--- NOTE | 2017-04-21 09:40 | PRG ---
DATE OF SERVICE: 04/21/2017 NEUROSURGERY PROGRESS NOTE SUBJECTIVE: Mr. Mora is 1 week into his hospital stay from intracerebral hemorrhage involving th e dominant thalamus on the left side with some intraventricular extension. Yesterday, he got 2 eyes open. Overnight, the nurses did not wean the propofol for a neurological examination so we stopped it together and I gave him a few minutes to wake up. Recorded vital signs are relatively stable. After sometime off the propofol, he opens his eyes minimally to stimulus. He is semi purposeful at best, left greater than right. His ventriculostomy is now draining some of the intraventricular hem orrhage, more above than yesterday. I reviewed a new CT scan of the brain which is relatively unchanged compared to the previous CT scan . My plan is for Mr. Mora to undergo his trach and PEG tomorrow and we will keep the drain in place and open. He could be clamped for the surgical procedure and reopen when he returns to the ICU. Griselda peck will continue to follow.
--- NOTE | 2017-04-21 09:42 | PRG ---
DATE OF SERVICE: 04/21/2017 SUBJECTIVE: Mr. Mora is a 51-year-old male I saw in the ICU this morning. This morning, he has hemoglobin of 13.5 and hematocrit of 40.6. There have been no acute events overnight. His son was in the room whenever I visited. There are no new neurologic deficits on exam. He had a venous Dopp ler ultrasound of bilateral lower extremity yesterday that showed it was negative. Vital signs have been stable overnight and his ICPs have been well maintained. He will continue to work with physic al therapy today. If there are any further questions, please feel free to contact Neurosurgery.
--- NOTE | 2017-04-21 10:24 | CON ---
DATE OF CONSULTATION: 04/21/2017 REASON FOR CONSULTATION: Respiratory failure. HISTORY OF PRESENT ILLNESS: This is a 51-year-old male who sustained intraventricular hemorrhage se condary to hypertension admitted to the ICU service, Dr. Montalvo is his neurosurgeon. He has ventr iculostomy tube present. He has had high intracranial pressures. I have been consulted for feeding tube and tracheostomy. PAST MEDICAL HISTORY: Hypertension and diabetes mellitus type 2. 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 SOCIAL HISTORY: He drinks socially, no smoking or other drugs. ALLERGIES: No known drug allergies. MEDICINES: See list. REVIEW OF SYSTEMS: Unable to obtain. Most of the history obtained from the . PHYSICAL EXAMINATION: VITAL SIGNS: Blood pressure 110/56, pulse 74, he is afebrile, actually temperature 100.9, respirati ons vent. NECK: Shows no evidence of lymphadenopathy. There is no neck incisions. CHEST: Coarse breath sounds bilateral. HEART: Regular rate and rhythm. ABDOMEN: Soft. He is protuberant, nontender, nondistended. He has a subcostal transverse incision in the right upper quadrant, but nothing in the xiphoid area. LABORATORY DATA: White blood cell count is 9, hemoglobin 13, platelet count is 222, creatinine 0.75 . ASSESSMENT: Respiratory failure secondary to intracranial hemorrhage. PLAN: Discussed with , risks and benefits of tracheostomy and feeding tube placement. We will attempt PEG tube; however, given his body habitus and previous surgery, he may require open gastric tube. Plan for surgery tomorrow unless Dr. Montalvo thinks we should wait secondary to persistently high intracranial pressures.
[2017-04-21] MEDS: Sodium Chloride 0.9% 1,000 ML IV SCH ×2 (10:56→20:14)
--- NOTE | 2017-04-21 10:59 | PDOC.PN ---
- Subjective Encounter Start Date: 04/21/17 Encounter Start Time: 09:40 Pt seen for followup re: HTN. Intubated, unable to provide history or ROS. - Objective Resuscitation Status: Resuscitation Status CHEM:Chem Code Only MAR Reviewed: Yes Vital Signs & Weight: Vital Signs (12 hours) Temp Pulse Resp BP Pulse Ox 04/21/17 10:00 26 H 04/21/17 08:00 100.9 F H 81 28 H 93 L 04/21/17 07:36 89 140/79 04/21/17 06:00 26 H 04/21/17 04:00 27 H 04/21/17 03:32 84 04/21/17 02:00 27 H 04/21/17 00:00 24 H 04/20/17 23:18 79 151/81 H Weight Admit Weight 311 lb Weight 333 lb 8.95 oz Most Recent Monitor Data Heart Rate from ECG 76 NIBP 126/67 NIBP BP-Mean 88 Respiration from ECG 28 SpO2 93 I&O: 04/20/17 04/21/17 04/22/17 06:59 06:59 06:59 Intake Total 6355 6232 Output Total 4292 2391 1027 Balance 2063 3561 1027 Result Diagrams: 04/21/17 04:04 04/21/17 04:04 Additional Labs: Accuchecks 04/20/17 04/20/17 04/20/17 22:08 17:51 12:40 POC Glucose 173 H 209 H 297 H EKG Reviewed by me: Yes (Tele: NSR) Phys Exam - Physical Examination Obese, intubated ETT; ventriculostomy Respiratory: no wheezing, no rales, no rhonchi, clear to auscultation bilateral Cardiovascular: RRR, no rub Gastrointestinal: soft Musculoskeletal: pulses present Dx/Plan (1) HTN (hypertension) Code(s): I10 - ESSENTIAL (PRIMARY) HYPERTENSION Status: Chronic (2) Dyslipidemia Code(s): E78.5 - HYPERLIPIDEMIA, UNSPECIFIED Status: Chronic (3) DM type 2 (diabetes mellitus, type 2) Status: Chronic Qualifiers: Diabetes mellitus complication status: without complication - Plan DVT proph w/SCDs * . Continue cardene drip and insulin. Likely trach and G-tube placement tomorrow. Review of Systems - Medications/Allergies Allergies/Adverse Reactions: Allergies Allergy/AdvReac Type Severity Reaction Status Date / Time No Known Drug Allergies Allergy Verified 04/14/17 14:24 Medications: Current Medications Acetaminophen (Tylenol Elixir) 1,000 mg PER TUBE Q6H PRN PRN Reason: Headache/Fever or Pain Last Admin: 04/21/17 08:00 Dose: 1,000 mg Acetaminophen (Tylenol) 1,[address] Q6H PRN PRN Reason: .FEVER Last Admin: 04/15/17 01:57 Dose: 1,000 mg Albuterol/Ipratropium (Duoneb) 3 ml NEB [id number] KAYLA Carvedilol (Coreg) 25 mg PER TUBE BID KAYLA Last Admin: 04/21/17 08:00 Dose: 25 mg Cefazolin Sodium (Ancef) 2 gm SLOW IVP 0500,1300,2100 KAYLA Last Admin: 04/21/17 05:27 Dose: 2 gm Dextrose/Water (Dextrose 50%) 25 gm SLOW IVP PRN PRN PRN Reason: Hypoglycemia Famotidine (Pepcid) 20 mg SLOW IVP Q12HR KAYLA Last Admin: 04/21/17 08:00 Dose: 20 mg Furosemide (Lasix) 20 mg SLOW IVP DAILY KAYLA Last Admin: 04/21/17 08:00 Dose: 20 mg Glucagon (Glucagon) 1 mg IM PRN PRN PRN Reason: Hypoglycemia Fentanyl (Fentanyl Cadd) 250 mls @ 0 mls/hr IVPB INF KAYLA; Titrate PRN Reason: Protocol Stop: 05/14/17 13:29 Fentanyl Citrate (Fentanyl Bolus) 250 mls @ 0 mls/hr IVPB PRN PRN; As Directed PRN Reason: VENTILATION SEDATION PROTOCOL Stop: 05/14/17 13:29 Dextrose/Water (D5w) 1,000 mls @ 0 mls/hr IV .Q0M PRN; As Directed PRN Reason: Hypoglycemia Nicardipine HCl 50 mg/ Sodium (Chloride) 250 mls @ 0 mls/hr IVPB INF PRN; Protocol; Titrate PRN Reason: SBP > 150 OR DBP > 90 Last Admin: 04/21/17 10:56 Dose: 250 mls Piperacillin Sod/Tazobactam (Sod 3.375 gm/ Sodium Chloride) 100 mls @ 200 mls/ hr IVPB Q6HR KAYLA Last Admin: 04/21/17 05:27 Dose: 100 mls Vancomycin HCl 2 gm/ Sodium (Chloride) 500 mls @ 250 mls/hr IVPB 0400,1200, 2000 [facility] Last Admin: 04/21/17 03:32 Dose: 500 mls Insulin Detemir 18 units/ (Miscellaneous Medication) 0.18 mls @ 1 mls/hr SC QAM [facility] Last Admin: 04/20/17 09:10 Dose: 0.18 mls Sodium Chloride (Normal Saline 0.9%) 1,000 mls @ 50 mls/hr IV .Q20H [facility] Last Admin: 04/21/17 10:56 Dose: 1,000 mls Insulin Human Lispro (Humalog) 0 units SC .MODERATE SLIDING SC PRN PRN Reason: Moderate Correctional Scale Last Admin: 04/21/17 05:27 Dose: 4 unit Labetalol HCl (Normodyne) 20 mg SLOW IVP Q15MIN PRN PRN Reason: SBP > 150 or DBP > 90 Last Admin: 04/20/17 18:11 Dose: 20 mg Mineral Oil/White Petrolatum (Lacri-Lube Ointment) 0 gm EA EYE PRN PRN PRN Reason: Dry Eyes Miscellaneous Medication (Pharmacy To Dose) 1 each IVPB PRN PRN PRN Reason: . Ondansetron HCl (Zofran) 4 mg IVP BIDPRN PRN PRN Reason: Nausea/Vomiting Propofol (Diprivan) 1,000 mg IV INF PRN; Protocol PRN Reason: TO ACHIEVE CAPONE SCORE 2-3 Stop: 05/14/17 13:29 Last Admin: 04/21/17 07:57 Dose: 1,000 mg Scopolamine (Transderm Scop) 1.5 mg TOP Q3D [facility] Last Admin: 04/19/17 12:18 Dose: 1.5 mg Sodium Chloride (Flush - Normal Saline) 10 ml IVF PRN PRN PRN Reason: Saline Flush Last Admin: 04/17/17 20:03 Dose: 10 ml
[2017-04-21] MEDS: PRE FILLED SC SCH (11:34)
[2017-04-21] MEDS: INSULIN DETEMIR SC SCH (11:34)
--- NOTE | 2017-04-21 11:43 | PRG ---
DATE OF SERVICE: 04/21/2017 SUBJECTIVE: Mr. Ken Mora this morning, intubated on the vent. He is unresponsive. OBJECTIVE: VITAL SIGNS: Pulse is 79, blood pressure 140/71, sats are 90%, respirations 29. I's \T\ O's have b een 3240 in, 318 out. CHEST: Reveals bilateral rhonchi. CARDIAC: Sinus tachycardia. ABDOMEN: Soft. LABORATORY DATA: White count 9000, H\T\H is 13 and 40, platelet count normal. Electrolytes are nor mal. IMPRESSION: Intracerebral hemorrhage, diabetes, respiratory failure, aspiration pneumonia. PLAN: Not weanable. Continue supportive care. Await input from Neurology. In the meantime, we have continued neb treatments, supportive care. We will follow.
--- NOTE | 2017-04-21 15:57 | CT ---
PRELIMINARY REPORT/[facility]/EMERGENCY AFTER HOURS PROCEDURE: EXAM: CT Head Without Intravenous Contrast CLINICAL HISTORY: 51 years old, male; Condition or disease; Other: Hemorrhage; Prior surgery; Surgery type: F/u hemorr cade TECHNIQUE: Axial computed tomography images of the head/brain without intravenous contrast. COMPARISON: CT Brain W Con 04/17/2017 3:46:09 AM FINDINGS: Large intraparenchymal hematoma again seen in the left thalamic region, about 3.3 cm in maximum diam eter. Moderate surrounding edema and focal mass effect, not significantly changed. Moderate uxyn-nz-terwd midline shift, also not significantly changed. As before, there is associated intraventricular blood, fairly similar in distribution compared to th e prior exam. No definite new hemorrhage in the interval. Right frontal ventriculostomy catheter extends into the frontal horn of the right lateral ventricle. Ventricle size is similar to the prior exam, borderline/mild prominence of the left lateral ventricl e. Presumed infarct again seen in the right basal ganglia/internal capsule region, similar to prior exa m. IMPRESSION: Left intraparenchymal and intraventricular hemorrhage, see above details. Overall appearance is wei lar to the prior exam. Moderate surrounding edema, focal mass effect, and gkar-zj-moapo midline shift, not significantly ch anged. No definite new hemorrhage in the interval. Right ventriculostomy catheter, essentially stable ventricle size. Other findings discussed above. Thank you for allowing us to participate in the care of your patient. Dictated and Authenticated by: Aime Cantor MD 04/21/2017 4:56 AM Central Time ([place] \T\ [place]) FINAL REPORT CT BRAIN: HISTORY: Intracranial hemorrhage. FINDINGS: Final report. Preliminary exam was performed by [facility]. CT images of the brain are obtained. Again, intracranial hemorrhage noted in the left basal ganglio n and thalamus extending into the third ventricle and lateral ventricles. Right frontal ventriculos wilman tube is present. No significant interval change is noted. I concur with the dictation from [facility]. POS: [facility]
[2017-04-21 19:26] LABS: Vancomycin, Trough 16.9 ug/mL
[2017-04-21] MEDS: Labetalol HCl 100 MG/20 ML VIAL SLOW IVP PRN (20:43)
[2017-04-22] MEDS: niCARdipine HCl 50 MG in Sodium Chloride 0.9% 250 ML 230 ML IVPB PRN ×5 (00:17→18:11)
[2017-04-22] MEDS: Piperacillin/Tazobactam 3.375 GM in Sodium Chloride 0.9% 100 ML IVPB SCH ×4 (00:42→18:11)
[2017-04-22] MEDS: Sodium Chloride 0.9% 1,000 ML IV SCH (00:50)
[2017-04-22] MEDS: Propofol 1,000 MG/100 ML VIAL IV PRN ×8 (02:00→21:52)
[2017-04-22 04:24] LABS: #Basophils 0.1 thou/uL (0.0-0.2); #Eosinphils 0.4 thou/uL (0.0-0.7); #Lymphocytes 1.2 thou/uL (1.20-3.40); #Monocytes 0.8 thou/uL (0.11-0.59); #Neutrophils 5.6 thou/uL (1.40-6.50); %Basophils 0.6 % (0.0-1.0); %Eosinophils 4.7 % (0.0-10.0); %Lymphocytes 15.1 % (21.0-51.0); %Monocytes 9.8 % (0.0-10.0); Hematocrit 37.3 % (42.0-52.0); Mean Platelet Volume 9.3 fL (7.4-10.4); Red Blood Cell (RBC) Count 4.03 mill/uL (4.70-6.10)
[2017-04-22 04:42] LABS: Anion Gap 12 mmol/L (10-20); BUN (Urea Nitrogen) 18 mg/dL (8.9-20.6); Calc. Creatinine Clearance 263 mL/min (70-130); Calcium 8.5 mg/dL (7.8-10.44); Carbon Dioxide 24 mmol/L (22-29); Chloride 110 mmol/L (98-107); Estimated GFR-MDRD Greater than 90
[2017-04-22] MEDS: HumaLOG 300 UNITS/3 ML VIAL SC PRN ×2 (06:14→12:39)
[2017-04-22] MEDS: Carvedilol 25 MG TAB PER TUBE SCH ×2 (09:50→20:42)
[2017-04-22] MEDS: Furosemide 20 MG/2 ML VIAL SLOW IVP SCH (09:50)
[2017-04-22] MEDS: PRE FILLED SC SCH (09:54)
[2017-04-22] MEDS: INSULIN DETEMIR SC SCH (09:54)
[2017-04-22] MEDS: Famotidine/PF 20 mg/2ml Vial SLOW IVP SCH ×2 (09:54→20:42)
[2017-04-22] MEDS: Scopolamine 1.5 mg/72 hour Patch TOP SCH (12:11)
--- NOTE | 2017-04-22 12:51 | PDOC.PN ---
- Subjective Encounter Start Date: 04/22/17 Encounter Start Time: 09:20 Pt seen for followup re; medical comorbidities including hypertension. Intubated, unable to provide history or ROS. - Objective Resuscitation Status: Resuscitation Status CHEM:Chem Code Only MAR Reviewed: Yes Vital Signs & Weight: Vital Signs (12 hours) Temp Pulse Resp BP Pulse Ox 04/22/17 11:04 73 135/64 04/22/17 10:00 13 04/22/17 08:00 26 H 04/22/17 07:59 99.5 F 80 21 H 90 L 04/22/17 07:13 75 24 H 90 L 04/22/17 06:22 77 141/72 H 04/22/17 06:00 25 H 04/22/17 04:00 27 H 04/22/17 02:00 29 H Weight Admit Weight 311 lb Weight 5.513 oz Most Recent Monitor Data Heart Rate from ECG 73 NIBP 128/65 NIBP BP-Mean 81 Respiration from ECG 23 SpO2 92 I&O: 04/21/17 04/22/17 04/23/17 06:59 06:59 06:59 Intake Total 6232 5825 80 Output Total 2391 3361 1780 Balance 3841 2464 -1700 Result Diagrams: 04/22/17 03:47 04/22/17 03:47 Additional Labs: Accuchecks 04/22/17 04/21/17 04/21/17 12:38 20:11 17:41 POC Glucose 170 H 137 H 188 H EKG Reviewed by me: Yes (Tele: NSR) Phys Exam - Physical Examination Intubated HEENT: moist MMs ventriculostomy+, ETT+ Respiratory: no wheezing, no rales, no rhonchi, clear to auscultation bilateral Cardiovascular: RRR Gastrointestinal: soft Musculoskeletal: pulses present No spontaneous limb movements Deviation from normal: Unable to assess Dx/Plan (1) HTN (hypertension) Code(s): I10 - ESSENTIAL (PRIMARY) HYPERTENSION Status: Chronic (2) Dyslipidemia Code(s): E78.5 - HYPERLIPIDEMIA, UNSPECIFIED Status: Chronic (3) DM type 2 (diabetes mellitus, type 2) Status: Chronic Qualifiers: Diabetes mellitus complication status: without complication - Plan plan discussed w/ family, DVT proph w/SCDs * . Continue insulin, antihypertensives, monitor vital signs. Family do not want tracheostomy or PEG tube at this time. Review of Systems - Medications/Allergies Allergies/Adverse Reactions: Allergies Allergy/AdvReac Type Severity Reaction Status Date / Time No Known Drug Allergies Allergy Verified 04/14/17 14:24 Medications: Current Medications Acetaminophen (Tylenol Elixir) 1,000 mg PER TUBE Q6H PRN PRN Reason: Headache/Fever or Pain Last Admin: 04/21/17 20:24 Dose: 1,000 mg Acetaminophen (Tylenol) 1,000 mg [place] Q6H PRN PRN Reason: .FEVER Last Admin: 04/15/17 01:57 Dose: 1,000 mg Albuterol/Ipratropium (Duoneb) 3 ml NEB Q6OD-DC KAYLA Last Admin: 04/22/17 07:13 Dose: 3 ml Carvedilol (Coreg) 25 mg PER TUBE BID KAYLA Last Admin: 04/22/17 09:50 Dose: 25 mg Cefazolin Sodium (Ancef) 2 gm SLOW IVP 0500,1300,2100 KAYLA Last Admin: 04/22/17 04:08 Dose: 2 gm Dextrose/Water (Dextrose 50%) 25 gm SLOW IVP PRN PRN PRN Reason: Hypoglycemia Famotidine (Pepcid) 20 mg SLOW IVP Q12HR KAYLA Last Admin: 04/22/17 09:54 Dose: 20 mg Furosemide (Lasix) 20 mg SLOW IVP DAILY KAYLA Last Admin: 04/22/17 09:50 Dose: 20 mg Glucagon (Glucagon) 1 mg IM PRN PRN PRN Reason: Hypoglycemia Fentanyl (Fentanyl Cadd) 250 mls @ 0 mls/hr IVPB INF KAYLA; Titrate PRN Reason: Protocol Stop: 05/14/17 13:29 Fentanyl Citrate (Fentanyl Bolus) 250 mls @ 0 mls/hr IVPB PRN PRN; As Directed PRN Reason: VENTILATION SEDATION PROTOCOL Stop: 05/14/17 13:29 Dextrose/Water (D5w) 1,000 mls @ 0 mls/hr IV .Q0M PRN; As Directed PRN Reason: Hypoglycemia Nicardipine HCl 50 mg/ Sodium (Chloride) 250 mls @ 0 mls/hr IVPB INF PRN; Protocol; Titrate PRN Reason: SBP > 150 OR DBP > 90 Last Admin: 04/22/17 10:02 Dose: 250 mls Piperacillin Sod/Tazobactam (Sod 3.375 gm/ Sodium Chloride) 100 mls @ 200 mls/ hr IVPB Q6HR [facility] Last Admin: 04/22/17 12:11 Dose: 100 mls Vancomycin HCl 2 gm/ Sodium (Chloride) 500 mls @ 250 mls/hr IVPB 0400,1200, 2000 [facility] Last Admin: 04/22/17 12:43 Dose: 500 mls Insulin Detemir 18 units/ (Miscellaneous Medication) 0.18 mls @ 1 mls/hr SC QAM [facility] Last Admin: 04/22/17 09:54 Dose: 0.18 mls Sodium Chloride (Normal Saline 0.9%) 1,000 mls @ 50 mls/hr IV .Q20H [facility] Last Admin: 04/22/17 00:50 Dose: 1,000 mls Insulin Human Lispro (Humalog) 0 units SC .MODERATE SLIDING SC PRN PRN Reason: Moderate Correctional Scale Last Admin: 04/22/17 12:39 Dose: 2 unit Labetalol HCl (Normodyne) 20 mg SLOW IVP Q15MIN PRN PRN Reason: SBP > 150 or DBP > 90 Last Admin: 04/21/17 20:43 Dose: 20 mg Mineral Oil/White Petrolatum (Lacri-Lube Ointment) 0 gm EA EYE PRN PRN PRN Reason: Dry Eyes Miscellaneous Medication (Pharmacy To Dose) 1 each IVPB PRN PRN PRN Reason: . Ondansetron HCl (Zofran) 4 mg IVP BIDPRN PRN PRN Reason: Nausea/Vomiting Propofol (Diprivan) 1,000 mg IV INF PRN; Protocol PRN Reason: TO ACHIEVE CAPONE SCORE 2-3 Stop: 05/14/17 13:29 Last Admin: 04/22/17 06:41 Dose: 1,000 mg Scopolamine (Transderm Scop) 1.5 mg TOP Q3D [facility] Last Admin: 04/22/17 12:11 Dose: 1.5 mg Sodium Chloride (Flush - Normal Saline) 10 ml IVF PRN PRN PRN Reason: Saline Flush Last Admin: 04/17/17 20:03 Dose: 10 ml
[2017-04-22] MEDS: Acetaminophen 650 MG/20.3 ML UDCUP PER TUBE PRN (18:43)
[2017-04-22] MEDS ORDERED: Sodium Chloride 0.9% 1,000 ML IV SCH (20:20)
--- NOTE | 2017-04-22 20:59 | PRG ---
DATE OF SERVICE: 04/22/2017 SERVICE: Pulmonary Medicine. INTERVAL HISTORY: The patient is doing fine from a cardiovascular standpoint. His oxygen requireme nts are actually increasing a little bit. Otherwise, there were no overnight events. The family ham s decided to not pursue PEG tube and tracheostomy placement. Ultimately, they recognized that he is probably going to remain in a permanently debilitated state. They suggested that under no circumst ances would he want to survive in this condition. As such, we are going to transition him over to [facility] only at the end of the week and PEG tube and tracheostomy will not be pursued at this ti or. Otherwise, there has been no interval change to his condition. PHYSICAL EXAMINATION: VITAL SIGNS: Afebrile currently with a T-max of 100.9, pulse 77, blood pressure 150/71, respiration s 23, saturation 97% on 11 of PEEP and an FiO2 of 50%. HEENT: Normocephalic and atraumatic. Sclerae are white, conjunctivae pink. Oral and nasal mucosa is moist without lesions. LUNGS: Decent air entry with no prolonged expiratory phase. Dependent crackles are present. HEART: Normal rate and regular. ABDOMEN: Soft, nontender and nondistended. Bowel sounds are positive. MUSCULOSKELETAL: No cyanosis or clubbing. There is trace 1+ pitting in the bilateral lower extremi ties. GENITOURINARY: Saucedo catheter in place. NEUROLOGIC: His pupils are equal, but not reactive to any light. He is overbreathing the ventilato r and demonstrates cough and gag. He is not having any significant withdrawal from noxious stimuli. LABORATORY DATA: WBC 8.0, hemoglobin 13.0 and platelets 208,000. Basic metabolic profile was essen tially unremarkable except for chloride, which is stable at 110. Potassium 3.7. ASSESSMENT: 1. Intraparenchymal hemorrhage with intraventricular extension, status post ventriculostomy drain. 2. Acute hypoxic respiratory failure, stable. 3. Community-acquired pneumonia secondary to aspiration. 4. Hypertensive emergency, resolved. 5. Type 2 diabetes mellitus. 6. Hypokalemia, resolved. PLAN: We will give him one more dose of potassium today. Otherwise, supportive care will be contin ued. We will support through the end of the week. If he does not make a significant neurologic rec overy in that period of time, the patient's family is planning on transitioning over to comfort care . We will try to minimize sedation towards the end of the week so that we can fully assess his neur ologic condition. I will increase the pressure support, and pressure control above PEEP ever so sli ghtly in order to target volumes of roughly 510 mL as his compliance of lungs has reduced slightly. CRITICAL CARE TIME: 30 minutes.
[2017-04-23] MEDS: HumaLOG 300 UNITS/3 ML VIAL SC PRN ×3 (00:25→12:35)
[2017-04-23] MEDS: Propofol 1,000 MG/100 ML VIAL IV PRN ×4 (00:50→12:14)
[2017-04-23] MEDS: Acetaminophen 650 MG/20.3 ML UDCUP PER TUBE PRN ×2 (04:14→12:34)
[2017-04-23] MEDS: Labetalol HCl 100 MG/20 ML VIAL SLOW IVP PRN ×2 (06:00→12:34)
[2017-04-23 06:04] LABS: #Eosinphils 0.3 thou/uL (0.0-0.7); #Lymphocytes 1.1 thou/uL (1.20-3.40); #Monocytes 0.8 thou/uL (0.11-0.59); #Neutrophils 4.7 thou/uL (1.40-6.50); %Basophils 0.2 % (0.0-1.0); %Lymphocytes 16.3 % (21.0-51.0); %Monocytes 11.2 % (0.0-10.0); Mean Platelet Volume 8.8 fL (7.4-10.4); Red Blood Cell (RBC) Count 4.06 mill/uL (4.70-6.10); White Blood Cell (WBC) Count 6.8 thou/uL (4.8-10.8)
[2017-04-23] MEDS: Furosemide 20 MG/2 ML VIAL SLOW IVP SCH ×2 (06:17→14:04)
[2017-04-23 06:24] LABS: Anion Gap 12 mmol/L (10-20); BUN (Urea Nitrogen) 17 mg/dL (8.9-20.6); Calc. Creatinine Clearance 306 mL/min (70-130); Calcium 8.2 mg/dL (7.8-10.44); Carbon Dioxide 25 mmol/L (22-29); Chloride 107 mmol/L (98-107); Estimated GFR-MDRD Greater than 90
[2017-04-23 06:46] VITALS: BP 183/103
[2017-04-23] MEDS: PRE FILLED SC SCH (09:09)
[2017-04-23] MEDS: INSULIN DETEMIR SC SCH (09:09)
[2017-04-23] MEDS: Carvedilol 25 MG TAB PER TUBE SCH (09:09)
[2017-04-23] MEDS: Famotidine/PF 20 mg/2ml Vial SLOW IVP SCH (09:09)
[2017-04-23] MEDS: niCARdipine HCl 50 MG in Sodium Chloride 0.9% 250 ML 230 ML IVPB PRN ×2 (12:18→14:11)
--- NOTE | 2017-04-23 16:00 | PDOC.PN ---
- Subjective Encounter Start Date: 04/23/17 Encounter Start Time: 07:20 Pt seen for followup re: hypertension. Intubated, unable to provide ROS. - Objective Resuscitation Status: Resuscitation Status DNR:Do Not Resuscitate MAR Reviewed: Yes Vital Signs & Weight: Vital Signs (12 hours) Temp Pulse Resp BP Pulse Ox 04/23/17 15:45 80 04/23/17 14:00 20 04/23/17 13:15 81 04/23/17 12:00 21 H 04/23/17 10:13 75 04/23/17 10:00 25 H 04/23/17 08:00 21 H 04/23/17 07:39 99.7 F H 79 28 H 95 04/23/17 06:37 68 04/23/17 06:00 74 28 H 183/103 H 04/23/17 04:00 26 H Weight Admit Weight 311 lb Weight 345 lb 14.484 oz Most Recent Monitor Data Heart Rate from ECG 80 NIBP 182/87 NIBP BP-Mean 109 Respiration from ECG 20 SpO2 96 I&O: 04/22/17 04/23/17 04/24/17 06:59 06:59 06:59 Intake Total 5825 4624 138 Output Total 3361 4165 4301 Balance 7008 689 -8520 Result Diagrams: 04/23/17 03:23 04/23/17 03:23 Additional Labs: Accuchecks 04/23/17 04/23/17 04/23/17 12:17 06:14 00:10 POC Glucose 202 H 181 H 168 H 04/22/17 18:22 POC Glucose 142 H EKG Reviewed by me: Yes (Tele: NSR) Phys Exam - Physical Examination Intubated ETT, ventriculostomy Neck: no JVD Respiratory: no wheezing, no rales, no rhonchi, clear to auscultation bilateral Cardiovascular: RRR, no rub No spontaneous limb movements Dx/Plan (1) HTN (hypertension) Code(s): I10 - ESSENTIAL (PRIMARY) HYPERTENSION Status: Chronic (2) Dyslipidemia Code(s): E78.5 - HYPERLIPIDEMIA, UNSPECIFIED Status: Chronic (3) DM type 2 (diabetes mellitus, type 2) Status: Chronic Qualifiers: Diabetes mellitus complication status: without complication - Plan * . Pt on Cardene drip. Continue insulin. Family deciding re: extubation. Review of Systems - Medications/Allergies Allergies/Adverse Reactions: Allergies Allergy/AdvReac Type Severity Reaction Status Date / Time No Known Drug Allergies Allergy Verified 04/14/17 14:24 Medications: Current Medications Acetaminophen (Tylenol Elixir) 1,000 mg PER TUBE Q6H PRN PRN Reason: Headache/Fever or Pain Last Admin: 04/23/17 12:34 Dose: 1,000 mg Acetaminophen (Tylenol) 1,000 mg [place] Q6H PRN PRN Reason: .FEVER Last Admin: 04/15/17 01:57 Dose: 1,000 mg Albuterol/Ipratropium (Duoneb) 3 ml NEB [id number] KAYLA Last Admin: 04/23/17 13:14 Dose: 3 ml Carvedilol (Coreg) 25 mg PER TUBE BID KAYLA Last Admin: 04/23/17 09:09 Dose: 25 mg Cefazolin Sodium (Ancef) 2 gm SLOW IVP 0500,1300,2100 KAYLA Last Admin: 04/23/17 14:04 Dose: 2 gm Dextrose/Water (Dextrose 50%) 25 gm SLOW IVP PRN PRN PRN Reason: Hypoglycemia Famotidine (Pepcid) 20 mg SLOW IVP Q12HR KAYLA Last Admin: 04/23/17 09:09 Dose: 20 mg Furosemide (Lasix) 40 mg SLOW IVP 0600,1400 KAYLA Last Admin: 04/23/17 14:04 Dose: 40 mg Glucagon (Glucagon) 1 mg IM PRN PRN PRN Reason: Hypoglycemia Fentanyl (Fentanyl Cadd) 250 mls @ 0 mls/hr IVPB INF KAYLA; Titrate PRN Reason: Protocol Stop: 05/14/17 13:29 Fentanyl Citrate (Fentanyl Bolus) 250 mls @ 0 mls/hr IVPB PRN PRN; As Directed PRN Reason: VENTILATION SEDATION PROTOCOL Stop: 05/14/17 13:29 Dextrose/Water (D5w) 1,000 mls @ 0 mls/hr IV .Q0M PRN; As Directed PRN Reason: Hypoglycemia Nicardipine HCl 50 mg/ Sodium (Chloride) 250 mls @ 0 mls/hr IVPB INF PRN; Protocol; Titrate PRN Reason: SBP > 150 OR DBP > 90 Last Admin: 04/23/17 14:11 Dose: 250 mls Vancomycin HCl 2 gm/ Sodium (Chloride) 500 mls @ 250 mls/hr IVPB 0400,1200, 2000 [facility] Last Admin: 04/23/17 12:14 Dose: 500 mls Insulin Detemir 18 units/ (Miscellaneous Medication) 0.18 mls @ 1 mls/hr SC QAM [facility] Last Admin: 04/23/17 09:09 Dose: 0.18 mls Sodium Chloride (Normal Saline 0.9%) 1,000 mls @ 0 mls/hr IV .Q0M KAYLA PRN Reason: KVO Insulin Human Lispro (Humalog) 0 units SC .MODERATE SLIDING SC PRN PRN Reason: Moderate Correctional Scale Last Admin: 04/23/17 12:35 Dose: 4 unit Labetalol HCl (Normodyne) 20 mg SLOW IVP Q15MIN PRN PRN Reason: SBP > 150 or DBP > 90 Last Admin: 04/23/17 12:34 Dose: 20 mg Mineral Oil/White Petrolatum (Lacri-Lube Ointment) 0 gm EA EYE PRN PRN PRN Reason: Dry Eyes Miscellaneous Medication (Pharmacy To Dose) 1 each IVPB PRN PRN PRN Reason: . Ondansetron HCl (Zofran) 4 mg IVP BIDPRN PRN PRN Reason: Nausea/Vomiting Propofol (Diprivan) 1,000 mg IV INF PRN; Protocol PRN Reason: TO ACHIEVE CAPONE SCORE 2-3 Stop: 05/14/17 13:29 Last Admin: 04/23/17 12:14 Dose: 1,000 mg Scopolamine (Transderm Scop) 1.5 mg TOP Q3D [facility] Last Admin: 04/22/17 12:11 Dose: 1.5 mg Sodium Chloride (Flush - Normal Saline) 10 ml IVF PRN PRN PRN Reason: Saline Flush Last Admin: 04/23/17 04:14 Dose: 10 ml
[2017-04-23] MEDS ORDERED: Sodium Chloride 0.9% 1,000 ML IV SCH ×2 (16:45→22:45)
--- NOTE | 2017-04-23 18:22 | PRG ---
DATE OF SERVICE: 04/23/2017 SERVICE: Pulmonary Medicine. INTERVAL HISTORY: The patient is doing fine from a cardiovascular and respiratory standpoint. His saturations have improved a little bit with decreasing FiO2. Otherwise, there has been no interval change to his mental status. The patient's family has determined that they are looking at [facility] over comfort care this evening. PHYSICAL EXAM: GENERAL: He is in no apparent distress. VITAL SIGNS: Afebrile, currently with a T-max of 100.9, pulse 83, blood pressure 182/87, respiratio ns 19, saturation 97% on 40% FiO2 and a PEEP of 10. HEENT: Normocephalic, atraumatic. Sclerae are white, conjunctivae pink. Oral and nasal mucosa is moist without lesions. LUNGS: Decent air entry. Crackles are present. HEART: Normal rate, regular. ABDOMEN: Soft, nontender, nondistended, bowel sounds positive. MUSCULOSKELETAL: No cyanosis or clubbing. There is 1+ pitting throughout. GENITOURINARY: Saucedo catheter in place. LABORATORY DATA: WBC 6.8, hemoglobin 12.4, platelets 192,000. Basic metabolic profile is completel y unremarkable. ASSESSMENT: 1. Intraparenchymal hemorrhage with intraventricular extension, status post ventriculostomy drain. 2. Acute hypoxic respiratory failure, stable. 3. Community-acquired pneumonia secondary to aspiration. 4. Hypertensive emergency. 5. Type 2 diabetes mellitus. PLAN: We will continue supportive care until the patient's family decides transition over to comfor t only. Otherwise, we will decrease FiO2 as tolerated. Pulmonary Critical Care will continue to fo llow while the patient remains in house. After compassionate extubation, if he continues to breathe , he will be transitioned to the floor with a hospice consultation. CRITICAL CARE TIME: 30 minutes.
[2017-04-23 23:35] VITALS: TEMP 99.8
--- NOTE | 2017-04-24 10:15 | PRG ---
DATE OF SERVICE: 04/24/2017 SERVICE: Pulmonary Medicine. INTERVAL HISTORY: The patient extubated yesterday. We transitioned over to comfort care and he con tinued to breathe. This morning, he is very comfortable. He was moved to the floor, so that more f amily members could visit with him. I talked to the family about where we were presently. It looks like he is going to continue breathing on for possibly couple of days. He is not requiring much in the way of comfort medications right now. As such, we will consult hospice and see about regan lam out of the hospital today. PHYSICAL EXAMINATION: VITAL SIGNS: T-max 99.8, pulse 88, blood pressure 204/107, respirations 23, saturation 88% on room air. GENERAL: Patient is somnolent/comatose. HEENT: Normocephalic, atraumatic. Sclerae are white, conjunctivae pink. Oral and nasal mucosa is moist without lesions. LUNGS: Decreased air entry. Dependent crackles are present. There are some rhonchi present. No w heezing. HEART: Normal rate, regular. ABDOMEN: Soft, nontender, and nondistended. Bowel sounds positive. MUSCULOSKELETAL: No cyanosis or clubbing. No pitting in the bilateral lower extremities. ASSESSMENT: 1. Intraparenchymal hemorrhage with intraventricular extension, status post ventriculostomy drain a nd subsequent removal. 2. Acute hypoxic respiratory failure. 3. Community-acquired pneumonia secondary to aspiration. 4. Hypertensive emergency. 5. Type 2 diabetes mellitus. PLAN: An hospice consultation will be placed. The patient's family has no requirements for any inp atient Pulmonary or Critical Care opinion. As such, I will sign off. Please call with additional q uestions or concerns moving forward.
--- NOTE | 2017-04-24 16:27 | PDOC.PN ---
- Subjective Encounter Start Date: 04/24/17 Encounter Start Time: 07:20 Subjective: obtunded, no distress -: not seen moving any extremities - Objective Resuscitation Status: Resuscitation Status DNR:Do Not Resuscitate MAR Reviewed: Yes Vital Signs & Weight: Vital Signs (12 hours) Temp Pulse Resp 04/24/17 08:00 99.8 F H 88 23 H Weight Admit Weight 311 lb Weight 345 lb 14.484 oz Most Recent Monitor Data Heart Rate from ECG 86 NIBP 204/107 NIBP BP-Mean 153 Respiration from ECG 23 SpO2 100 I&O: 04/23/17 04/24/17 04/25/17 06:59 06:59 06:59 Intake Total 4624 238 Output Total 2005 8114 Balance 022 -5686 Result Diagrams: 04/23/17 03:23 04/23/17 03:23 Phys Exam - Physical Examination HEENT: sclera anicteric dry mucosa Neck: no JVD, supple Respiratory: no wheezing, no rales rhonchi+ Cardiovascular: RRR, no significant murmur Gastrointestinal: soft, non-tender, no distention, positive bowel sounds Musculoskeletal: no edema, pulses present b/l upgoing plantars, quadriparesis, in coma Dx/Plan (1) ICH (intracerebral hemorrhage) Code(s): I61.9 - NONTRAUMATIC INTRACEREBRAL HEMORRHAGE, UNSPECIFIED Status: Acute Qualifiers: Intracerebral hemorrhage etiology: nontraumatic Laterality: left Comment: sec to htn emergency (2) Dyslipidemia Code(s): E78.5 - HYPERLIPIDEMIA, UNSPECIFIED Status: Chronic (3) HTN (hypertension) Code(s): I10 - ESSENTIAL (PRIMARY) HYPERTENSION Status: Chronic Qualifiers: Hypertension type: essential hypertension Qualified Code(s): I10 - Essential (primary) hypertension (4) Aspiration pneumonia Code(s): J69.0 - PNEUMONITIS DUE TO INHALATION OF FOOD AND VOMIT Status: Acute Qualifiers: Aspiration pneumonia type: due to regurgitated food (5) CVA (cerebral vascular accident) Code(s): I63.9 - CEREBRAL INFARCTION, UNSPECIFIED Status: Acute Comment: hemorrhagic (6) DM type 2 (diabetes mellitus, type 2) Status: Chronic Qualifiers: Diabetes mellitus complication status: without complication Diabetes mellitus fci insulin use: without fci use Qualified Code(s): E11.9 - Type 2 diabetes mellitus without complications - Plan poor prognosis -: has been accepted to inpt hospice -: dc anytime when bed is available -: d/w family * .
--- NOTE | 2017-04-25 01:06 | DIS ---
DATE OF ADMISSION: 04/14/2017 DATE OF DISCHARGE: 04/24/2017 DISCHARGE DISPOSITION: To Inpatient Hospice. PRIMARY DISCHARGE DIAGNOSES: Hypertensive emergency with intracerebral hemorrhage and hemorrhagic stroke, comatose, aspiration pneumonia, diabetes mellitus type 2, hypertension, dyslipidemia. PROCEDURES DONE DURING HOSPITALIZATION: The patient has had serial CAT scans of the brain done in view of intracerebral hemorrhage. Initial CAT scan done showed left intraaxial hemorrhage with associated intraventricular extension. The patient has had right twist drill placement of ventriculostomy done on 04/[address] Montalvo. His discharge H\T\H 12 and 38, platelet count 192. DISCHARGE MEDICATIONS: Morphine p.r.n. for comfort. ALLERGIES: No known drug allergies. BRIEF COURSE DURING HOSPITALIZATION: The patient initially got admitted on for complaints of headache and became unconscious shortly thereafter and on arrival in the ER, CT brain showed large left thalamic intracerebral hemorrhage and intraventricular extension. On arrival, his blood pressure was 209/144. He was admitted to ICU and was placed on Cardene drip. He was initially admitted by Neurosurgical Service. He was also intubated as patient was obtunded, and this was for airway. The patient did not progress well clinically and was gradually declining. Family consultations were held by Neurosurgical Service and Critical Care Service. Family wanted to go in for withdrawal of care. He was terminally extubated on 04/23/2017. The patient has continued to breathe and hence is being discharged to inpatient hospice this morning. His overall prognosis is very poor. He is comatose and is not moving any extremities. His entire family is at bedside here. Please see a [id number] documentation on [facility] for the day of discharge. LUIGID
== END 2017-04-24 16:39 | disposition hospice, inpatient (51) | DRG 23 ==
LOC: EDBD 10:15 → ERS 10:15 → CCU 11:34 → MERGE 11:34 → T4-B 04-23 18:03
PROVIDERS: ADMIT Neurological Surgery; ATTEND Neurological Surgery
PROC: 0BH17EZ Insertion of Endotracheal Airway into Trachea, Via Natural or Artificial Opening (ICD-10-PCS; principal; 2017-04-14)
PROC: 009600Z Drainage of Cerebral Ventricle with Drainage Device, Open Approach (ICD-10-PCS; 2017-04-14)
PROC: 5A1955Z Respiratory Ventilation, Greater than 96 Consecutive Hours (ICD-10-PCS; 2017-04-14)
DX: I61.6 Nontraumatic intracerebral hemorrhage, multiple localized (principal); J96.01 Acute respiratory failure with hypoxia; J69.0 Pneumonitis due to inhalation of food and vomit; G93.6 Cerebral edema; G93.40 Encephalopathy, unspecified; E11.9 Type 2 diabetes mellitus without complications; L03.113 Cellulitis of right upper limb; I16.1 Hypertensive emergency; Z68.41 Body mass index [BMI] 40.0-44.9, adult; L03.114 Cellulitis of left upper limb; E87.6 Hypokalemia; I10 Essential (primary) hypertension; Z79.84 Long term (current) use of oral hypoglycemic drugs; Z86.73 Personal history of transient ischemic attack (TIA), and cerebral infarction without residual deficits; Z51.5 Encounter for palliative care; R40.2432 Glasgow coma scale score 3-8, at arrival to emergency department; E78.5 Hyperlipidemia, unspecified; F32.9 Major depressive disorder, single episode, unspecified; Z91.14 Patient's other noncompliance with medication regimen; E66.9 Obesity, unspecified; E87.70 Fluid overload, unspecified
CPT/HCPCS: 31500; 36415; 36416; 51702; 70450; 71010; 80048; 80053; 80202; 82553; 82805; 83735; 83880; 84100; 84443; 84484; 85025; 85610; 85730; 87070; 87076; 87205; 93005; 93970; 94002; 94003; 94640; 96365; 96366; 96368; 96375; 99292; A4218; C1751; G8981-GP-CN; G8982-GP-CM; J1815; J1940; J2270; J2543; J2704; J3010; J3370; J7050; J7620; S0028